=== PATIENT | female | born 1990 | race Caucasian/White ===

== ENCOUNTER 2017-05-12 07:32 | Emergency (ER) | payer MEDICAID, SELFPAY ==
[2017-05-12 07:34] VITALS: BP 124/90; PULSE 82; RESP 17; TEMP 36.9; O2SAT 97; BMI 19.5
--- NOTE | 2017-05-12 08:08 | ED.DCSUM_ITS ---
- ER Visit Summary Date of Service: 05/12/17 Chief Complaint: Sore throat History of Present Illness: The patient is a 26 F with 2 days of gradual onset severe sore throat hurts significantly to swallow, she has developed diffuse neck pain, it hurts to move her head although she is able. She denies any fevers. She has a nonproductive cough but states it is not severe and that it is because of my sore throat. No dyspnea. Some headache and nausea no vomiting. She states she is , she found out 2 weeks ago, her last normal menstrual period was 04/06/17. That would place her about 5-6 weeks . She has had no vaginal symptoms or abdominal discomfort other than the nausea. 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 Physical Examination: Nontoxic, afebrile, vital signs normal. No tachycardia. Posterior oropharynx is erythematous diffusely, her tonsils are barely visible, there is no asymmetry or edema or any exudates. No trismus. Anterior cervical lymphadenopathy, no posterior nodes. No stridor, lungs are clear, heart is regular. No rashes. Test Results: Rapid strep negative. Culture sent and pending. Emergency Department Course and Treatment: Discussed pros and cons of Decadron, patient was amenable, given 10 mg which I think will help her symptoms more than anything else I can give her safely while being right now. Antibiotics do not appear to be indicated given her negative strep. Unlikely to have mono, she is Toni and her significant other is well, And she has no posterior lymphadenopathy. She has no stridor or dyspnea, I do not think she has epiglottitis, and there is no asymmetry to suggest an abscess. I recommend no antibiotics at this time unless the culture returns positive. She is given the day off work and advised with regards to hydration and supportive care. Treatment Plan: Supportive Disposition: Discharge home Impression: Acute pharyngitis This note was generated with Medialive dictation software. It may contain incorrect words, spelling, and punctuation that were not noted in review of the chart prior to signing ED Disposition - Plan for ED Patient: Disposition: Home or Assisted Living Chief Complaint: Sore Throat Instructions: ED Pharyngitis Viral Referrals: Ramires,Quan, DO [Primary Care Provider] - 3-5 Days if not improving
[2017-05-12] MEDS: Ondansetron ODT 4 MG Tablet 8 MG PO (10:03)
== END 2017-05-12 10:08 | disposition home or self-care (01) ==
PROVIDERS: Emergency Provider Emergency Medicine; Family Provider Student in an Organized Health Care Education/Training Program; PCP Student in an Organized Health Care Education/Training Program
DX: O26.891 Other specified pregnancy related conditions, first trimester (principal); J02.9 Acute pharyngitis, unspecified; Z3A.01 Less than 8 weeks gestation of pregnancy
CPT/HCPCS: 87880; 99283

== ENCOUNTER 2017-05-16 20:15 | Emergency (ER) | payer MEDICAID, SELFPAY ==
[2017-05-16 20:16] VITALS: BP 110/74; PULSE 74; RESP 16; TEMP 37.3; O2SAT 99; BMI 19.9
--- NOTE | 2017-05-16 22:23 | ED.VISSUMM ---
- ER Visit Summary Date of Service: 05/16/17 Chief Complaint: [] Constipation History of Present Illness: The patient is a 26 F complaining of abdominal cramping for the last 2 days. She feels bloated. She has not had a bowel movement except for very small hard ones in the last 2 weeks. She is 6 weeks . She tried 4 doses of MiraLAX with her last dose being 4 days ago with no relief. She is using apple juice. She has had this remotely. Denies any other symptoms Physical Examination: [] Vital signs reviewed General: Well-nourished well-developed Head: Normocephalic atraumatic Eyes: Pupils equal round and reactive to light extraocular movements intact ENT: TMs clear no hemotympanum no trauma Neck: Nontender full range of motion Cardiovascular: Regular rate rhythm no murmurs normal S1-S2 Respiratory: No distress clear to auscultation bilaterally chest nontender Abdomen: Soft mild diffuse tenderness nondistended normal bowel sounds no masses Back: Nontender no CVA tenderness Extremities: Nontender active range of motion ?4 extremities no trauma Skin: Normal color no trauma Neuro alert oriented cranial nerves II through XII intact normal strength sensation reflexes Test Results: [] Emergency Department Course and Treatment: [] Given a soapsuds enema. Patient had a very large soft bowel movement after and feels back to normal. She will do MiraLAX for the next couple days. She will use Colace as well. Treatment Plan: [] Disposition: [] Impression: [] Constipation This note was generated with GlobaTrek dictation software. It may contain incorrect words, spelling, and punctuation that were not noted in review of the chart prior to signing ED Disposition - Plan for ED Patient: Chief Complaint: Constipation Referrals: Quan Ramires DO [Primary Care Provider] -
--- NOTE | 2017-05-16 22:59 | ED.RN ---
PT REQUESTING TO REMAIN IN SEATED POSITION FOR SOAPSUDS ENEMA, STATES SHE DOES NOT LIKE TO LAY ON SIDE. EDUCATED ON CORRECT POSITION FOR ENEMA, MECHANISM OF ACTION FOR OPTIMAL RESULTS. PT THREW BLANKET ON FLOOR, STATES WHATEVER, PT AWARE SHE HAS RIGHT TO REFUSE ENEMA. PT PLACED SELF IN SIDE LYING POSITION, ENEMA INSERTED WITHOUT DIFFICULTY.
--- NOTE | 2017-05-16 23:54 | ED.DEP ---
ED Disposition - Plan for ED Patient: Chief Complaint: Constipation Instructions: ED Constipation Referrals: Quan Ramires DO [Primary Care Provider] -
[2017-05-17] MEDS: Ondansetron ODT 4 MG Tablet 8 MG PO (00:35)
[2017-05-17 00:36] VITALS: BP 98/65; PULSE 61; RESP 16; O2SAT 100
== END 2017-05-17 00:36 | disposition home or self-care (01) ==
PROVIDERS: Emergency Provider Emergency Medicine; Family Provider Student in an Organized Health Care Education/Training Program; PCP Student in an Organized Health Care Education/Training Program
DX: O26.891 Other specified pregnancy related conditions, first trimester (principal); K59.00 Constipation, unspecified; Z3A.01 Less than 8 weeks gestation of pregnancy; Z90.49 Acquired absence of other specified parts of digestive tract
CPT/HCPCS: 99284

== ENCOUNTER → 2017-05-21 13:36 | Outpatient (CLI) | payer MEDICAID, SELFPAY | PROVIDERS: Family Provider Student in an Organized Health Care Education/Training Program; PCP Student in an Organized Health Care Education/Training Program; Visit Provider Nurse Practitioner Women's Health | DX: O20.0 Threatened abortion (principal); Z3A.00 Weeks of gestation of pregnancy not specified | CPT/HCPCS: 36415; 84702; 86850; 86900 ==

== ENCOUNTER 2017-05-23 19:52 | Emergency (ER) | payer MEDICAID, SELFPAY ==
[2017-05-23 19:55] VITALS: BP 119/83; PULSE 73; RESP 15; TEMP 37.2; BMI 18.6
[2017-05-23] MEDS: Ondansetron ODT 4 MG Tablet PO (20:54)
[2017-05-23 21:19] LABS: Red Blood Cells-Urine 0 SEEN /hpf (0-5)
[2017-05-23 21:28] LABS: Color, Urine Yellow (Yellow); Glucose, Dipstick Normal (Normal); Ketone-Dipstick 15 mg/dl (Negative); Leukocyte Esterase-Dipstick 100 /ul (Negative); Nitrite-Dipstick Negative (Negative); Occult Blood-Urine 150 /ul (Negative); Protein-Dipstick 15 mg/dl (Negative); Urine Bilirubin Dipstick Negative (Negative); Urine Clarity Cloudy (Clear); Urine Urobilinogen Normal (Normal)
[2017-05-23 21:40] LABS: Calcium Oxalate Crystals Ur 1+ /hpf (<or=2+)
[2017-05-23 21:42] LABS: Bacteria RARE /hpf (None Seen); Mucous, Urine RARE /hpf (<or=2+); Squamous Epithelial Cells - UA 0-5 SEEN /hpf (5-10); White Blood Cells 0-5 SEEN /hpf (0-5)
[2017-05-23 21:44] LABS: Yeast-Urine RARE /hpf (None Seen)
[2017-05-23] MEDS: Magnesium Citrate 300 ML PO (22:15)
[2017-05-23 22:24] VITALS: BP 105/75; PULSE 68; RESP 16; O2SAT 98
--- NOTE | 2017-05-23 22:46 | ED.VISSUMM ---
- ER Visit Summary Date of Service: 05/23/17 Chief Complaint: Constipation and abdominal pain History of Present Illness: The patient is a 26 F who is Ab1 at approximately 7 weeks. Patient states that for the past week she has been constipated. She tried enemas with little relief. She was seen by her [employer]RE[employer] L[employer] REPA[employer]ER HELPER approximately 2 days ago. She had a single live intrauterine noted. Patient states that she has this abdominal pain that is unbearable. Starts on the right side and wraps to the front. She states is there 24 hours a day for the past 7 days. She notes some nausea and vomiting. States that she knows that she is dehydrated because her mouth feels dry. She is making urine. She tried some magnesium citrate but threw it up and that is when they decided to bring her to the emergency department. Physical Examination: Afebrile vital signs are stable Gen: Well-nourished well-developed Head: Normocephalic atraumatic Eyes: Perrl EOMI ENT: TMs clear no rhinorrhea moist mucous membranes Neck: Supple no lymphadenopathy no JVD nontender CVS: Regular rate rhythm no murmurs normal S1-S2 Respiratory: No distress clear to auscultation bilaterally chest nontender Abdomen: Soft operable stool along the ascending and transverse colon. Nondistended normal bowel sounds no masses Back: Nontender Extremity: Nontender no edema Skin: Normal color no rash Neuro: alert orientated ?3 CN II-XII intact normal strength sensation reflexes gait cerebellar Psych: She has a very dramatic affect particularly around family members Test Results: Urinalysis showed 5 ketones. Emergency Department Course and Treatment: Received IV fluids. She also received her again and is drinking magnesium citrate. Patient was advised that if she is not eating she has not to have much stool to come out. Because she is early and I do not feel that there is a emergent cause to her abdominal pain IM not going to image the abdomen. She is to drink the magnesium citrate and her magnesium citrate at home. I will write for Phenergan. He is to orally hydrate. She is to eat. She is to follow-up with her ST[employer]PA[employer] HELPER. Impression: 1. First trimester 2. Abdominal pain 3. Constipation 4. Vomiting This note was generated with True Pivotation software. It may contain incorrect words, spelling, and punctuation that were not noted in review of the chart prior to signing ED Disposition - Plan for ED Patient: Disposition: Home or Assisted Living Chief Complaint: Abd Pain Instructions: Treating Constipation, ED Constipation Prescriptions: ProMETHAzine [Phenergan] 25 mg PO Q8H PRN PRN #20 tab PRN Reason: Nausea Referrals: Quan Ramires DO [Primary Care Provider] - 3-5 Days if not improving
== END 2017-05-23 23:05 | disposition home or self-care (01) ==
PROVIDERS: Emergency Provider Emergency Medicine; Family Provider Student in an Organized Health Care Education/Training Program; PCP Student in an Organized Health Care Education/Training Program
DX: O21.9 Vomiting of pregnancy, unspecified (principal); Z3A.01 Less than 8 weeks gestation of pregnancy; K59.00 Constipation, unspecified; R10.9 Unspecified abdominal pain
CPT/HCPCS: 81001; 99284; J7040

== ENCOUNTER 2017-05-31 16:25 | Emergency (ER) | payer MEDICAID, SELFPAY ==
[2017-05-31 16:27] VITALS: BP 106/72; PULSE 92; RESP 16; TEMP 37.3; O2SAT 99; BMI 19.1
[2017-05-31 17:25] LABS: Absolute Lymphocyte Count 1.31 X10^3/ul (0.83-4.51); Absolute Neutrophil Count 7.4 X10^3/uL (2.0-7.7); Basophil# 0.01 X10^3/uL; Basophil% 0.1 % (0-1); Eosinophil# 0.04 X10^3/uL; Eosinophils% 0.4 % (0-5); Hematocrit 38.1 % (37-47); Hemoglobin 12.8 g/dl (12.0-15.0); Lymphocyte # 1.31 X10^3/ul (4.0); Lymphocyte % 12.8 % (19-41); Mean Corp Hgb Conc 33.6 g/gl (32-36); Mean Corpuscular Hgb 29.2 pg (27.0-32.0); Mean Platelet Vol. 9.2 fl (6.2-12.0); Monocyte# 1.44 X10^3/uL; Neutrophil # 7.43 X10^3/uL (2.7-7.7); Neutrophil % 72.5 % (47-70); Platelet Count 199 K/mm3 (150-450); RBC Distribution Width CV 13.8 % (11.6-14.6); RBC Distribution Width SD 43.8 fl (35.1-43.9); Red Blood Count 4.38 M/mm3 (4.2-5.4); White Blood Count 10.3 K/mm3 (4.4-11.0)
[2017-05-31] MEDS: DiphenhydrAMINE 50 MG/ML Syringe 25 MG IV (17:28)
[2017-05-31] MEDS: Lactated Ringers 1,000 ML 1000 ML IV (17:28)
[2017-05-31 17:36] LABS: BUN 9 mg/dL (7-18); BUN/Creat Ratio 18.4 RATIO (10-20); Creatinine, Serum 0.49 mg/dL (0.55-1.02); EST Glomerular Filtration Rate 160 mL/min (>60); Est Glom Filt Rate - Afr Amer 194 mL/min (>60); Estimated Creatinine Clearance 124.13 ml/min; Glucose 83 mg/dL (74-106)
[2017-05-31 17:37] LABS: ALB/GLOB Ratio 0.8 RATIO (0.9-2.4); AST(SGOT) 15 U/L (15-37); Alanine Aminotransfer ALT/SGPT 19 U/L (13-56); Alkaline Phosphatase 78 U/L (45-117); Anion Gap 9 (5-15); Calcium,Total 8.2 mg/dL (8.5-10.1); Chloride 106 mmol/L (98-107); Potassium 3.3 mmol/L (3.5-5.1); Sodium Level 138 mmol/L (136-145)
[2017-05-31 17:39] LABS: POSITIVE COUNT NO; POSITIVE DIFFERENTIAL NO; POSITIVE MORPHOLOGY NO
[2017-05-31] MEDS: proCHLORPERazine 10 MG/2 ML Vial IV (17:57)
[2017-05-31 18:58] LABS: Mucous, Urine 0 SEEN /hpf (<or=2+); Red Blood Cells-Urine 0 SEEN /hpf (0-5)
[2017-05-31 19:04] LABS: Color, Urine Yellow (Yellow); Glucose, Dipstick Normal (Normal); Ketone-Dipstick 50 mg/dl (Negative); Leukocyte Esterase-Dipstick 100 /ul (Negative); Nitrite-Dipstick Negative (Negative); Occult Blood-Urine 25 /ul (Negative); Protein-Dipstick Negative (Negative); Specific Gravity, Urine 1.015 (1.002-1.030); Urine Bilirubin Dipstick Negative (Negative); Urine Clarity Sl. Cloudy (Clear); Urine Urobilinogen Normal (Normal); Urine pH 6.5 (5.0 - 8.0)
[2017-05-31 19:22] LABS: Bacteria 1+ /hpf (None Seen); Squamous Epithelial Cells - UA 5-10 SEEN /hpf (5-10); White Blood Cells 5-10 SEEN /hpf (0-5)
--- NOTE | 2017-05-31 19:32 | ED.RN ---
PT'S SIGNIFICANT OTHER CONCERNED WITH BUMP ON BACK OF PT'S HEAD. SO STATES PT'S MOTHER FROM A BRAIN ANEURYSM, HE IS CONCERNED PT MAY HAVE SAME. DISCUSSED PRESENTATION AND SYMPTOMS OF BRAIN ANEURYSM WITH PT AND SO, BOTH VOICE UNDERSTANDING. MD MADE AWARE OF CONCERNS OF PT AND SO.
[2017-05-31 19:37] VITALS: BP 96/68; PULSE 71; RESP 14; O2SAT 100
--- NOTE | 2017-05-31 20:13 | ED.DCSUM_ITS ---
- ER Visit Summary Date of Service: 05/31/17 Chief Complaint: Sick History of Present Illness: The patient is a 26 F Ab1 at 8 weeks . She has a history of a confirmed live intrauterine . She has been dealing with morning sickness. She presents today with fever, sore throat, head pressure, earaches, and nosebleeds. Patient denies any abdominal pain, vaginal bleeding, or vaginal discharge. Physical Examination: Vital signs are unremarkable. Afebrile. Patient appears very uncomfortable. She is alert and oriented. Cranial nerves grossly intact. Moving her neck freely. HEENT exam unremarkable. Heart regular. Lungs clear. Abdomen soft. Skin appears normal. Without rash. Test Results: CBC unremarkable. Potassium 3.3. Urinalysis shows signs of infection and bacteria. Emergency Department Course and Treatment: After discussion with the patient she was treated with Compazine, Benadryl, and lactated Ringer's. Symptoms improved greatly. This sounds like a sinus infection. Nothing to suggest intracranial bleeding, meningitis, vascular pathology, or any other significant pathologies. Patient may take Tylenol for symptoms. Stay hydrated. Will prescribe Keflex for her bacteriuria. Culture pending. Follow-up with OB and/or primary care for recheck. Return if worse. Treatment Plan: As above Disposition: Charge Impression: 1. Acute sinusitis 2. Bacteruria This note was generated with Sonarworks dictation software. It may contain incorrect words, spelling, and punctuation that were not noted in review of the chart prior to signing ED Disposition - Plan for ED Patient: Chief Complaint: General Illness Referrals: Quan Ramires DO [Primary Care Provider] -
--- NOTE | 2017-05-31 20:13 | ED.DEP ---
ED Disposition - Plan for ED Patient: Chief Complaint: General Illness Instructions: ED Sinusitis Abx Tx Prescriptions: Cephalexin [Keflex] 500 mg PO Q6 #40 cap Referrals: Quan Ramires DO [Primary Care Provider] -
[2017-05-31] MEDS: Cephalexin 250 MG Capsule 500 MG PO (20:57)
== END 2017-05-31 21:11 | disposition home or self-care (01) ==
PROVIDERS: Emergency Provider Emergency Medicine; Family Provider Student in an Organized Health Care Education/Training Program; PCP Student in an Organized Health Care Education/Training Program
DX: O26.891 Other specified pregnancy related conditions, first trimester (principal); J01.90 Acute sinusitis, unspecified; R82.71 Bacteriuria; Z3A.08 8 weeks gestation of pregnancy
CPT/HCPCS: 80053; 81001; 85025; 87086; 87088; 96361; 96374; 96375; 99284; J7120; A4216

== ENCOUNTER → 2017-06-01 11:49 | Outpatient (CLI) | payer MEDICAID, SELFPAY ==
[2017-06-01 12:25] LABS: Absolute Lymphocyte Count 1.61 X10^3/ul (0.83-4.51); Absolute Neutrophil Count 3.2 X10^3/uL (2.0-7.7); Basophil# 0.02 X10^3/uL; Basophil% 0.4 % (0-1); Eosinophils% 1.8 % (0-5); Hematocrit 37.5 % (37-47); Hemoglobin 12.5 g/dl (12.0-15.0); Lymphocyte # 1.61 X10^3/ul (4.0); Lymphocyte % 28.4 % (19-41); Mean Corp Hgb Conc 33.3 g/gl (32-36); Mean Platelet Vol. 8.9 fl (6.2-12.0); Monocyte# 0.73 X10^3/uL; Monocyte% 12.9 % (0-10); Neutrophil % 56.3 % (47-70); Platelet Count 209 K/mm3 (150-450); RBC Distribution Width CV 13.8 % (11.6-14.6); RBC Distribution Width SD 43.9 fl (35.1-43.9); Red Blood Count 4.31 M/mm3 (4.2-5.4); White Blood Count 5.7 K/mm3 (4.4-11.0)
[2017-06-01 12:27] LABS: POSITIVE COUNT NO; POSITIVE DIFFERENTIAL NO; POSITIVE MORPHOLOGY NO
[2017-06-01 13:43] LABS: HIV - WCH Non-Reactive (Nonreactive); Rubella IgG < 0.2 IU/mL
[2017-06-02 11:01] LABS: HEPATITIS B SURFACE AG Negative (Negative)
[2017-06-08 02:58] LABS: Rapid Plasmin Reagin (RPR) NONREACTIVE (NONREACTIVE)
== END ==
PROVIDERS: Family Provider Student in an Organized Health Care Education/Training Program; PCP Student in an Organized Health Care Education/Training Program; Visit Provider Obstetrics & Gynecology
DX: Z34.01 Encounter for supervision of normal first pregnancy, first trimester (principal)
CPT/HCPCS: 36415; 85025; 86592; 86703; 86762; 86850; 86900; 87086; 87088; 87340; 87491; 87591; 88175; G0145

== ENCOUNTER → 2017-06-01 21:31 | Outpatient (CLI) | payer MEDICAID, SELFPAY ==
[2017-06-01 23:11] LABS: Chlamydia Trachomatis by PCR Negative (Negative); Neisserai gonorrhoeae by PCR Negative (Negative); Probe Check PASS; Sample Adequacy Control PASS; Specimen Processing Control PASS
[2017-06-06 14:39] LABS: HPV Reflexed? NOT INDICATED
== END ==
PROVIDERS: Visit Provider Obstetrics & Gynecology
DX: Z34.01 Encounter for supervision of normal first pregnancy, first trimester (principal)
CPT/HCPCS: 87086; 87088; 87491; 87591; 88175; G0145

== ENCOUNTER → 2017-07-02 12:38 | Outpatient (CLI) | payer MEDICAID, SELFPAY | PROVIDERS: Family Provider Student in an Organized Health Care Education/Training Program; PCP Student in an Organized Health Care Education/Training Program | DX: Z36.82 Encounter for antenatal screening for nuchal translucency (principal) | CPT/HCPCS: 36415 ==

== ENCOUNTER → 2017-07-30 09:45 | Outpatient (CLI) | payer MEDICAID, SELFPAY | PROVIDERS: Family Provider Student in an Organized Health Care Education/Training Program; PCP Student in an Organized Health Care Education/Training Program | DX: O09.92 Supervision of high risk pregnancy, unspecified, second trimester (principal) | CPT/HCPCS: 36415 ==

== ENCOUNTER → 2017-08-13 18:20 | Outpatient (CLI) | payer MEDICAID, SELFPAY | PROVIDERS: Family Provider Student in an Organized Health Care Education/Training Program; PCP Student in an Organized Health Care Education/Training Program; Visit Provider Obstetrics & Gynecology | DX: R10.2 Pelvic and perineal pain (principal) | CPT/HCPCS: 87086; 87088 ==

== ENCOUNTER → 2017-08-21 18:24 | Outpatient (CLI) | payer MEDICAID, SELFPAY ==
--- NOTE | 2017-08-21 18:30 | US_ITS ---
STUDY: SECOND AND THIRD TRIMESTER OBSTETRICAL ULTRASOUND REASON FOR EXAM: Female, 26 years old. Routine survey. LMP: April 06, 2017. TECHNIQUE: Transabdominal PRIOR ULTRASOUND: None. FINDINGS: There is a single intrauterine fetus. The fetus is in a cephalic presentation. There is demonstrated cardiac activity with a heart rate of 155 bpm. There is a normal amniotic fluid volume. The largest amniotic fluid pocket measures 6.0 cm x 3.0 cm.The placenta is anterior in location and is not low lying. There are Grade 0 placental changes. The cervix measures 3.7 cm in length. The adnexal regions are not visualized. BIOMETRY: BPD: 4.55 cm: 19 weeks, 6 days HC: 17.76 cm: 20 weeks, 2 days AC: 15.05 cm: 20 weeks, 3 days FL: 3.17 cm: 19 weeks, 6 days CI: 77% FL/BPD: 70% FL/HC: FL/AC: 21% HC/AC: 1.18 age by current US: 20 weeks, 1 days. GORDON by current US: January 07, 2018. Estimated weight: 332 grams, +/- 48 grams, 75 %. Age by LMP: 19 weeks, 4 days. GORDON by LMP: January 11, 2018.. ANATOMY: Gender: Male Cranium: Normal lateral ventricles. Normal choroid plexus. Normal cerebellum. Normal cisterna magna. Normal face, nose and lips. Chest: Normal 4-chamber heart. Abdomen/Pelvis: Normal diaphragm. Normal stomach. Normal abdominal wall. Normal cord insertion. Normal 3 vessel cord. Normal kidneys. Normal bladder. Spine: Normal cervical spine. Normal thoracic spine. Normal lumbar spine. Normal sacrum. Extremities: Normal bilateral upper extremities. Normal bilateral lower extremities. US/OB Anatomy Scan IMPRESSION: There is a single live intrauterine gestation with a mean gestational age of 20 weeks and 1 day. Electronically Signed: Benny Valentin MD at 8:58 EDT Tel [phone], Service support ,
== END ==
PROVIDERS: Family Provider Student in an Organized Health Care Education/Training Program; PCP Student in an Organized Health Care Education/Training Program; Visit Provider Obstetrics & Gynecology
DX: Z34.01 Encounter for supervision of normal first pregnancy, first trimester (principal)
CPT/HCPCS: 76805

== ENCOUNTER → 2017-09-10 15:07 | Outpatient (CLI) | payer MEDICAID, SELFPAY ==
[2017-09-10 16:51] LABS: ALB/GLOB Ratio 0.6 RATIO (0.9-2.4); AST(SGOT) 21 U/L (15-37); Alanine Aminotransfer ALT/SGPT 23 U/L (13-56); Albumin, Serum 2.6 g/dL (3.2-5.0); Alkaline Phosphatase 67 U/L (45-117); Anion Gap 6 (5-15); BUN 5 mg/dL (7-18); BUN/Creat Ratio 14.3 RATIO (10-20); Calcium,Total 7.9 mg/dL (8.5-10.1); Chloride 105 mmol/L (98-107); Creatinine, Serum 0.35 mg/dL (0.55-1.02); EST Glomerular Filtration Rate 235 mL/min (>60); Est Glom Filt Rate - Afr Amer 284 mL/min (>60); Globulin 4.2 g/dL (2.2-4.2); Glucose 73 mg/dL (74-106); Potassium 3.8 mmol/L (3.5-5.1); Protein, Total 6.8 g/dL (6.4-8.2); Sodium Level 135 mmol/L (136-145)
== END ==
PROVIDERS: Family Provider Student in an Organized Health Care Education/Training Program; PCP Student in an Organized Health Care Education/Training Program; Visit Provider Obstetrics & Gynecology
DX: O99.719 Diseases of the skin and subcutaneous tissue complicating pregnancy, unspecified trimester (principal); L29.9 Pruritus, unspecified; Z3A.00 Weeks of gestation of pregnancy not specified
CPT/HCPCS: 36415; 80053

== ENCOUNTER → 2017-10-08 12:02 | Outpatient (CLI) | payer MEDICAID, SELFPAY ==
[2017-10-08 13:40] LABS: Absolute Lymphocyte Count 1.45 X10^3/ul (0.83-4.51); Absolute Neutrophil Count 4.4 X10^3/uL (2.0-7.7); Basophil# 0.01 X10^3/uL; Basophil% 0.1 % (0-1); Eosinophil# 0.04 X10^3/uL; Eosinophils% 0.6 % (0-5); Hematocrit 30.1 % (37-47); Hemoglobin 9.6 g/dl (12.0-15.0); Lymphocyte # 1.45 X10^3/ul (4.0); Lymphocyte % 21.5 % (19-41); Mean Corp Hgb Conc 31.9 g/gl (32-36); Mean Corpuscular Hgb 28.2 pg (27.0-32.0); Mean Corpuscular Volume 88.5 fL (81-99); Mean Platelet Vol. 8.5 fl (6.2-12.0); Monocyte# 0.77 X10^3/uL; Monocyte% 11.4 % (0-10); Neutrophil # 4.42 X10^3/uL (2.7-7.7); Neutrophil % 65.5 % (47-70); Platelet Count 249 K/mm3 (150-450); RBC Distribution Width CV 13.3 % (11.6-14.6); RBC Distribution Width SD 41.3 fl (35.1-43.9); White Blood Count 6.8 K/mm3 (4.4-11.0)
[2017-10-08 14:05] LABS: Glucose Challenge Gest 1H 50g 71 mg/dL (70-140)
[2017-10-08 14:08] LABS: POSITIVE COUNT NO; POSITIVE DIFFERENTIAL NO; POSITIVE MORPHOLOGY NO
== END ==
PROVIDERS: Family Provider Student in an Organized Health Care Education/Training Program; PCP Student in an Organized Health Care Education/Training Program; Visit Provider Obstetrics & Gynecology
DX: Z34.90 Encounter for supervision of normal pregnancy, unspecified, unspecified trimester (principal)
CPT/HCPCS: 36415; 82950; 85025; 87070; 87077; 87106; 87205

== ENCOUNTER → 2017-10-08 18:13 | Outpatient (CLI) | payer MEDICAID, SELFPAY | PROVIDERS: Family Provider Student in an Organized Health Care Education/Training Program; PCP Student in an Organized Health Care Education/Training Program; Visit Provider Obstetrics & Gynecology | DX: Z34.90 Encounter for supervision of normal pregnancy, unspecified, unspecified trimester (principal) | CPT/HCPCS: 87070; 87205 ==

== ENCOUNTER → 2017-11-19 09:25 | Outpatient (CLI) | payer MEDICAID, SELFPAY ==
[2017-11-19 09:52] LABS: Absolute Lymphocyte Count 1.46 X10^3/ul (0.83-4.51); Absolute Neutrophil Count 4.6 X10^3/uL (2.0-7.7); Basophil# 0.01 X10^3/uL; Basophil% 0.1 % (0-1); Eosinophil# 0.03 X10^3/uL; Eosinophils% 0.4 % (0-5); Hematocrit 30.5 % (37-47); Hemoglobin 9.3 g/dl (12.0-15.0); Lymphocyte # 1.46 X10^3/ul (4.0); Lymphocyte % 20.9 % (19-41); Mean Corp Hgb Conc 30.5 g/gl (32-36); Mean Corpuscular Hgb 25.4 pg (27.0-32.0); Mean Corpuscular Volume 83.3 fL (81-99); Mean Platelet Vol. 8.1 fl (6.2-12.0); Monocyte# 0.87 X10^3/uL; Monocyte% 12.5 % (0-10); Neutrophil # 4.59 X10^3/uL (2.7-7.7); Neutrophil % 65.8 % (47-70); Platelet Count 203 K/mm3 (150-450); RBC Distribution Width CV 14.2 % (11.6-14.6); RBC Distribution Width SD 41.2 fl (35.1-43.9); Red Blood Count 3.66 M/mm3 (4.2-5.4)
[2017-11-19 09:55] LABS: POSITIVE COUNT NO; POSITIVE DIFFERENTIAL NO; POSITIVE MORPHOLOGY NO
== END ==
PROVIDERS: Family Provider Student in an Organized Health Care Education/Training Program; PCP Student in an Organized Health Care Education/Training Program; Visit Provider Obstetrics & Gynecology
DX: O99.013 Anemia complicating pregnancy, third trimester (principal); Z3A.00 Weeks of gestation of pregnancy not specified
CPT/HCPCS: 36415; 85025

== ENCOUNTER → 2017-12-06 08:38 | Outpatient (CLI) | payer MEDICAID, SELFPAY ==
[2017-12-06 08:57] VITALS: BP 94/54; PULSE 71; RESP 16; TEMP 37.1; O2SAT 100; BMI 24.0
== END ==
PROVIDERS: Family Provider Student in an Organized Health Care Education/Training Program; PCP Student in an Organized Health Care Education/Training Program; Visit Provider Obstetrics & Gynecology
DX: O99.013 Anemia complicating pregnancy, third trimester (principal)
CPT/HCPCS: 96365; J1756; J7050

== ENCOUNTER 2017-12-09 11:15 | Outpatient (CLI) | payer MEDICAID, SELFPAY ==
[2017-12-09 11:52] VITALS: BMI 24.4
[2017-12-09] MEDS: Betamethasone/Betamethasone 30 MG/5 ML Vial 12 MG IM (13:14)
--- NOTE | 2017-12-13 22:33 | OB.TRI.NOTE ---
- Problem List (1) labor in third trimester Status: Acute Qualifiers: Comment: heatherone 12/08 and 12/10 History of Present Illness Date of Service: 12/09/17 Was patient seen by the physician?: Yes Reason For Visit: R/O LABOR Date of Service: 12/09/17 History of Present Illness: co regular ctx Allergies benzonatate Allergy (Verified 12/11/17 11:32) Vomiting oxycodone Allergy (Verified 12/11/17 11:32) Shortness of breath prazosin Allergy (Verified 12/11/17 11:32) Swelling ziprasidone HCl [From Geodon] Allergy (Verified 12/11/17 11:32) Other chest pressure ziprasidone mesylate [From Geodon] Allergy (Verified 12/11/17 11:32) Other chest pressure aripiprazole [From Abilify] Adverse Reaction (Verified 12/11/17 11:32) Other citalopram hydrobromide [From Celexa] Adverse Reaction (Verified 12/11/17 11:32) Other famotidine [From Pepcid] Adverse Reaction (Verified 12/11/17 11:32) Other iron Adverse Reaction (Verified 12/11/17 11:32) Other Constipation from oral iron supplements lithium Adverse Reaction (Verified 12/11/17 11:32) Other mirtazapine [From Remeron] Adverse Reaction (Verified 12/11/17 11:32) Itching olanzapine Adverse Reaction (Verified 12/11/17 11:32) Other MON LINYAH Adverse Reaction (Uncoded 12/06/17 09:05) Other - Pertinent Past Medical History Medical History: Past Medical History (Last Reviewed 12/11/17 @ 11:33 by Randee Stock) Anxiety and depression Surgical History: Past Surgical History (Last Reviewed 12/11/17 @ 11:33 by Randee Stock) Hiatal hernia History of appendectomy gallbladder surgery NST - FHR Rate Baby A Baseline: 130 Variability:: Moderate Accelerations:: 15 x 15 Decelerations:: None NST Reactive:: Yes FHR Category:: Category I Uterine Activity:: q2-4 Impression/Plan threatened ptl- no cervical change but persistent ctx. BMX given, fu in 24 hours for second dose
== END 2017-12-09 15:30 | disposition home or self-care (01) ==
LOC: WPOUT 11:20 → WP 11:21
PROVIDERS: Family Provider Student in an Organized Health Care Education/Training Program; PCP Student in an Organized Health Care Education/Training Program; Visit Provider Obstetrics & Gynecology
DX: O60.03 Preterm labor without delivery, third trimester (principal); Z3A.00 Weeks of gestation of pregnancy not specified
CPT/HCPCS: 59025; 59050; 87086; 87088; 96372; 99218; G0378; J0702

== ENCOUNTER 2017-12-10 13:26 | Outpatient (CLI) | payer MEDICAID, SELFPAY ==
[2017-12-10 13:35] VITALS: BMI 157.1
[2017-12-10] MEDS: Betamethasone/Betamethasone 30 MG/5 ML Vial 12 MG IM (13:50)
--- NOTE | 2017-12-13 22:32 | OB.TRI.NOTE ---
History of Present Illness Allergies benzonatate Allergy (Verified 12/11/17 11:32) Vomiting oxycodone Allergy (Verified 12/11/17 11:32) Shortness of breath prazosin Allergy (Verified 12/11/17 11:32) Swelling ziprasidone HCl [From Geodon] Allergy (Verified 12/11/17 11:32) Other chest pressure ziprasidone mesylate [From Geodon] Allergy (Verified 12/11/17 11:32) Other chest pressure aripiprazole [From Abilify] Adverse Reaction (Verified 12/11/17 11:32) Other citalopram hydrobromide [From Celexa] Adverse Reaction (Verified 12/11/17 11:32) Other famotidine [From Pepcid] Adverse Reaction (Verified 12/11/17 11:32) Other iron Adverse Reaction (Verified 12/11/17 11:32) Other Constipation from oral iron supplements lithium Adverse Reaction (Verified 12/11/17 11:32) Other mirtazapine [From Remeron] Adverse Reaction (Verified 12/11/17 11:32) Itching olanzapine Adverse Reaction (Verified 12/11/17 11:32) Other MON LINYAH Adverse Reaction (Uncoded 12/06/17 09:05) Other - Pertinent Past Medical History Medical History: Past Medical History (Last Reviewed 12/11/17 @ 11:33 by Randee Stock) Anxiety and depression Surgical History: Past Surgical History (Last Reviewed 12/11/17 @ 11:33 by Randee Stock) Hiatal hernia History of appendectomy gallbladder surgery Impression/Plan celestone shot
== END 2017-12-10 13:56 | disposition home or self-care (01) ==
LOC: WPOUT 13:28 → WP 13:29
PROVIDERS: Family Provider Student in an Organized Health Care Education/Training Program; PCP Student in an Organized Health Care Education/Training Program; Visit Provider Obstetrics & Gynecology
DX: O60.03 Preterm labor without delivery, third trimester (principal); Z3A.00 Weeks of gestation of pregnancy not specified
CPT/HCPCS: 59025; 59050; 96372; 99218; G0378; J0702

== ENCOUNTER 2017-12-11 11:45 | Outpatient (CLI) | payer MEDICAID, SELFPAY ==
[2017-12-11 11:55] VITALS: BMI 24.3
--- NOTE | 2017-12-13 22:35 | OB.TRI.NOTE ---
History of Present Illness Date of Service: 12/11/17 Reason For Visit: DECREASE MOVEMENT Date of Service: 12/11/17 History of Present Illness: decreased movement Allergies benzonatate Allergy (Verified 12/11/17 11:32) Vomiting oxycodone Allergy (Verified 12/11/17 11:32) Shortness of breath prazosin Allergy (Verified 12/11/17 11:32) Swelling ziprasidone HCl [From Geodon] Allergy (Verified 12/11/17 11:32) Other chest pressure ziprasidone mesylate [From Geodon] Allergy (Verified 12/11/17 11:32) Other chest pressure aripiprazole [From Abilify] Adverse Reaction (Verified 12/11/17 11:32) Other citalopram hydrobromide [From Celexa] Adverse Reaction (Verified 12/11/17 11:32) Other famotidine [From Pepcid] Adverse Reaction (Verified 12/11/17 11:32) Other iron Adverse Reaction (Verified 12/11/17 11:32) Other Constipation from oral iron supplements lithium Adverse Reaction (Verified 12/11/17 11:32) Other mirtazapine [From Remeron] Adverse Reaction (Verified 12/11/17 11:32) Itching olanzapine Adverse Reaction (Verified 12/11/17 11:32) Other MON LINYAH Adverse Reaction (Uncoded 12/06/17 09:05) Other - Pertinent Past Medical History Medical History: Past Medical History (Last Reviewed 12/11/17 @ 11:33 by Randee Stock) Anxiety and depression Surgical History: Past Surgical History (Last Reviewed 12/11/17 @ 11:33 by Randee Stock) Hiatal hernia History of appendectomy gallbladder surgery NST - FHR Rate Baby A Baseline: 125 Variability:: Moderate Accelerations:: 15 x 15 Decelerations:: None NST Reactive:: Yes FHR Category:: Category I Uterine Activity:: q 3-5 Impression/Plan decreased movement- reactive nst dc home
== END 2017-12-11 12:55 | disposition home or self-care (01) ==
LOC: WPOUT 11:49 → WP 11:50
PROVIDERS: Family Provider Student in an Organized Health Care Education/Training Program; PCP Student in an Organized Health Care Education/Training Program; Visit Provider Obstetrics & Gynecology
DX: O36.8190 Decreased fetal movements, unspecified trimester, not applicable or unspecified (principal); Z3A.00 Weeks of gestation of pregnancy not specified
CPT/HCPCS: 59025; 59050; 99218; G0378

== ENCOUNTER → 2017-12-11 13:29 | Outpatient (CLI) | payer MEDICAID, SELFPAY ==
[2017-12-11 13:42] VITALS: BP 106/59; PULSE 83; RESP 16; TEMP 36.8; O2SAT 99; BMI 24.3
== END ==
PROVIDERS: Family Provider Student in an Organized Health Care Education/Training Program; PCP Student in an Organized Health Care Education/Training Program; Visit Provider Obstetrics & Gynecology
DX: O99.013 Anemia complicating pregnancy, third trimester (principal); Z3A.00 Weeks of gestation of pregnancy not specified
CPT/HCPCS: 96365; 59025; 59050; 99218; J1756; J7050; A4216; G0378

== ENCOUNTER → 2017-12-12 17:17 | Outpatient (CLI) | payer MEDICAID, SELFPAY ==
--- NOTE | 2017-12-12 17:19 | US_ITS ---
STUDY: SECOND AND THIRD TRIMESTER OBSTETRICAL ULTRASOUND - LIMITED REASON FOR EXAM: Female, 26 years old. growth. LMP: 04/06/2017. GA (LMP) 35 week 5 day with GORDON 01/11/2018. PRIOR ULTRASOUND: 08/21/2017 TECHNIQUE: Transabdominal ultrasound evaluation was performed. FINDINGS: Single live intrauterine gestation in cephalic presentation with cardiac rate 143 bpm and with normal amniotic fluid index 17.1 cm with deepest vertical pocket 5.3 cm. Closed long cervix 3.5 cm. The maternal adnexa are not visualized. The placenta is anterior, not low-lying, grade 2. BIOMETRY: Measurement in centimeter. BPD: 8.6: 34 weeks, 5 days HC: 31.9: 36 weeks, 0 days AC: 31.4: 35 weeks, 5 days FL: 7: 35 weeks, 3 days Cephalic index 70%.. Femur length/abdominal circumference 22%. Femur length/biparietal diameter 81%. Head circumference/abdominal circumference 1.02. Estimated weight 2671 g, plus or minus 390 g, 41% age by current ultrasound 35 week 4 day, with GORDON 01/12/2018. Within 5 days of expected dates based on prior ultrasound. Within 1 day of expected dates based on last menses. US/OB Limited With Biometrics IMPRESSION: Measurements are closely concordant with expected dates. No acute or maternal abnormality is evident. Normal growth parameters. Electronically Signed: Dre Lebron, at 17:03 EDT Tel , Service support ,
== END ==
PROVIDERS: Family Provider Student in an Organized Health Care Education/Training Program; PCP Student in an Organized Health Care Education/Training Program; Visit Provider Obstetrics & Gynecology
DX: Z34.90 Encounter for supervision of normal pregnancy, unspecified, unspecified trimester (principal)
CPT/HCPCS: 76816

== ENCOUNTER → 2017-12-20 11:32 | Outpatient (CLI) | payer MEDICAID, SELFPAY ==
[2017-12-20 12:22] VITALS: BP 95/58; PULSE 78; RESP 16; TEMP 37.1
[2017-12-20 13:32] LABS: Absolute Neutrophil Count 6.3 X10^3/uL (2.0-7.7); Basophil# 0.03 X10^3/uL; Basophil% 0.3 % (0-1); Eosinophil# 0.04 X10^3/uL; Eosinophils% 0.4 % (0-5); Hematocrit 31.4 % (37-47); Hemoglobin 9.6 g/dl (12.0-15.0); Mean Corp Hgb Conc 30.6 g/gl (32-36); Mean Corpuscular Hgb 25.1 pg (27.0-32.0); Mean Platelet Vol. 8.6 fl (6.2-12.0); Monocyte# 0.75 X10^3/uL; Monocyte% 8.3 % (0-10); Neutrophil # 6.27 X10^3/uL (2.7-7.7); Neutrophil % 69.3 % (47-70); Platelet Count 222 K/mm3 (150-450); RBC Distribution Width CV 17.4 % (11.6-14.6); RBC Distribution Width SD 48.6 fl (35.1-43.9); Red Blood Count 3.83 M/mm3 (4.2-5.4); White Blood Count 9.1 K/mm3 (4.4-11.0)
[2017-12-20 13:35] LABS: POSITIVE COUNT NO; POSITIVE DIFFERENTIAL NO; POSITIVE MORPHOLOGY NO
== END ==
PROVIDERS: Family Provider Student in an Organized Health Care Education/Training Program; PCP Student in an Organized Health Care Education/Training Program; Referring Provider Obstetrics & Gynecology; Visit Provider Obstetrics & Gynecology
DX: O99.013 Anemia complicating pregnancy, third trimester (principal); Z3A.00 Weeks of gestation of pregnancy not specified
CPT/HCPCS: 96365; 36415; 85025; 87081; 87653; J1756; J7050; A4216

== ENCOUNTER → 2017-12-20 17:07 | Outpatient (CLI) | payer MEDICAID, SELFPAY ==
[2017-12-20 18:36] LABS: Group B Strep DNA By PCR Negative (Negative); Internal Control PASS; Probe Check PASS; Specimen Processing Control PASS
== END ==
PROVIDERS: Family Provider Student in an Organized Health Care Education/Training Program; PCP Student in an Organized Health Care Education/Training Program; Referring Provider Obstetrics & Gynecology; Visit Provider Obstetrics & Gynecology
DX: Z34.90 Encounter for supervision of normal pregnancy, unspecified, unspecified trimester (principal)
CPT/HCPCS: 87081; 87653

== ENCOUNTER → 2017-12-24 08:17 | Outpatient (CLI) | payer MEDICAID, SELFPAY ==
[2017-12-24 10:06] VITALS: BP 112/60; PULSE 81; RESP 14; TEMP 36.8; BMI 24.1
== END ==
PROVIDERS: Family Provider Student in an Organized Health Care Education/Training Program; PCP Student in an Organized Health Care Education/Training Program; Visit Provider Obstetrics & Gynecology
DX: O99.013 Anemia complicating pregnancy, third trimester (principal); Z3A.00 Weeks of gestation of pregnancy not specified
CPT/HCPCS: 96365; J1756; J7050

== ENCOUNTER → 2017-12-31 09:10 | Outpatient (CLI) | payer MEDICAID, SELFPAY ==
[2017-12-31 10:09] VITALS: BP 94/59; PULSE 76; RESP 16; TEMP 36.9; O2SAT 97; BMI 25.3
== END ==
PROVIDERS: Family Provider Student in an Organized Health Care Education/Training Program; PCP Student in an Organized Health Care Education/Training Program; Visit Provider Obstetrics & Gynecology
DX: O99.013 Anemia complicating pregnancy, third trimester (principal); Z3A.00 Weeks of gestation of pregnancy not specified
CPT/HCPCS: 96365; J1756; J7050; A4216

== ENCOUNTER 2018-01-11 10:30 | Outpatient (CLI) | payer MEDICAID, SELFPAY ==
[2018-01-11 11:40] LABS: ROM Internal Control Test YES-OK TO RESULT pt. (Internal QC); ROM Patient Test Negative (Negative)
[2018-01-11 12:20] VITALS: BMI 25.2
--- NOTE | 2018-01-11 22:59 | OB.TRI.NOTE ---
- Problem List (1) False labor Status: Acute History of Present Illness Date of Service: 01/11/18 Was patient seen by the physician?: No Reason For Visit: RULE OUT SROM History of Present Illness: co lof and contractions Allergies benzonatate Allergy (Verified 01/11/18 12:20) Vomiting oxycodone Allergy (Verified 01/11/18 12:20) Shortness of breath prazosin Allergy (Verified 01/11/18 12:20) Swelling ziprasidone HCl [From Geodon] Allergy (Verified 01/11/18 12:20) Other chest pressure ziprasidone mesylate [From Geodon] Allergy (Verified 01/11/18 12:20) Other chest pressure aripiprazole [From Abilify] Adverse Reaction (Verified 01/11/18 12:20) Other citalopram hydrobromide [From Celexa] Adverse Reaction (Verified 01/11/18 12:20) Other famotidine [From Pepcid] Adverse Reaction (Verified 01/11/18 12:20) Other iron Adverse Reaction (Verified 01/11/18 12:20) Other Constipation from oral iron supplements lithium Adverse Reaction (Verified 01/11/18 12:20) Other mirtazapine [From Remeron] Adverse Reaction (Verified 01/11/18 12:20) Itching olanzapine Adverse Reaction (Verified 01/11/18 12:20) Other MON LINYAH Adverse Reaction (Uncoded 01/11/18 12:20) Other - Pertinent Past Medical History Medical History: Past Medical History (Last Reviewed 01/07/18 @ 08:42 by Randee Stock) Anxiety and depression Surgical History: Past Surgical History (Last Reviewed 01/07/18 @ 08:42 by Randee Stock) Hiatal hernia History of appendectomy gallbladder surgery Laboratory Studies: Laboratory Tests 01/11/18 Range/Units 11:05 Vag Amniotic Fld Detect Negative (Negative) NST - FHR Rate Baby A Baseline: 130 Variability:: Moderate Accelerations:: 15 x 15 Decelerations:: None NST Reactive:: Yes FHR Category:: Category I Uterine Activity:: q3-8 Impression/Plan false labor no cervicla change, no rom dc home
== END 2018-01-11 13:00 | disposition home or self-care (01) ==
LOC: WPOUT 10:58 → WP 10:58
PROVIDERS: Family Provider Student in an Organized Health Care Education/Training Program; PCP Student in an Organized Health Care Education/Training Program; Referring Provider Obstetrics & Gynecology; Visit Provider Obstetrics & Gynecology
DX: O47.9 False labor, unspecified (principal); Z3A.00 Weeks of gestation of pregnancy not specified
CPT/HCPCS: 59025; 59050; 84112; 99218; G0378

== ENCOUNTER 2018-01-18 17:30 | Outpatient (CLI) | payer MEDICAID, SELFPAY ==
--- NOTE | 2018-01-18 17:36 | US_ITS ---
STUDY: SECOND AND THIRD TRIMESTER OBSTETRICAL ULTRASOUND - LIMITED REASON FOR EXAM: Female, 27 years old. GSA Gestational size/age LMP: PRIOR ULTRASOUND: 9..18 TECHNIQUE: Transabdominal and Transvaginal TECHNICAL QUALITY: Adequate. FINDINGS: There is a single intrauterine fetus. The fetus is in a cephalic presentation. There is demonstrated cardiac activity with a heart rate of 146 bpm. The placenta is not visualized. The cervix measures 2.6 cm in length. BIOMETRY: BPD: 94mm: 38 weeks, 1 days HC: 364mm: weeks, days AC: 335mm: 37 weeks, 3 days FL: 78mm: 40 weeks, 1 days Age by LMP: 40 weeks, 6 days. GORDON by LMP: 10.20.18. age by prior US: 40 weeks, 6 days. GORDON by prior US: 10.20.18. age by current US: 38 weeks, 4 days. GORDON by current US: 11.5.18. Estimated weight: 3575 grams, +/- 522 grams, percentile. US/OB Limited (No Biometrics) IMPRESSION: There is a single live intrauterine with a heart rate of 146 bpm. age by current US: 38 weeks, 4 days. GORDON by current US: 11.5.18. Estimated weight: 3575 grams, +/- 522 grams, percentile. Electronically Signed: Casimiro Gray MD at 20:12 EDT , Service support ,
[2018-01-18 19:36] VITALS: BMI 25.4
--- NOTE | 2018-01-18 20:59 | US_ITS ---
STUDY: SECOND AND THIRD TRIMESTER OBSTETRICAL ULTRASOUND - LIMITED REASON FOR EXAM: Female, 27 years old. well-being VIKAS ONLY. LMP: PRIOR ULTRASOUND: 9.19.18 AND Jan 18 2018 6:45pm TECHNIQUE: Transabdominal TECHNICAL QUALITY: Adequate. FINDINGS: There is a single intrauterine fetus. There is a normal amniotic fluid volume. The largest amniotic fluid pocket measures 5.8 cm. The amniotic fluid index (VIKAS) is 17.7 cm. US/OB Limited (No Biometrics) IMPRESSION: VIKAS IS 17.7 Electronically Signed: Casimiro Gray MD at 22:03 EDT , Service support ,
--- NOTE | 2018-01-23 03:10 | OB.TRI.NOTE ---
- Problem List (1) Post-dates Status: Acute History of Present Illness Date of Service: 01/18/18 Was patient seen by the physician?: No Reason For Visit: NST Date of Service: 01/18/18 History of Present Illness: postdates Allergies benzonatate Allergy (Verified 01/18/18 19:35) Vomiting oxycodone Allergy (Verified 01/18/18 19:35) Shortness of breath prazosin Allergy (Verified 01/18/18 19:35) Swelling ziprasidone HCl [From Geodon] Allergy (Verified 01/18/18 19:35) Other chest pressure ziprasidone mesylate [From Geodon] Allergy (Verified 01/18/18 19:35) Other chest pressure aripiprazole [From Abilify] Adverse Reaction (Verified 01/18/18 19:35) Other states she cant remember rx citalopram hydrobromide [From Celexa] Adverse Reaction (Verified 01/18/18 19:35) Other famotidine [From Pepcid] Adverse Reaction (Verified 01/18/18 19:35) Other iron Adverse Reaction (Verified 01/18/18 19:35) Other Constipation from oral iron supplements lithium Adverse Reaction (Verified 01/18/18 19:35) Other mirtazapine [From Remeron] Adverse Reaction (Verified 01/18/18 19:35) Itching olanzapine Adverse Reaction (Verified 01/18/18 19:35) Other MON LINYAH Adverse Reaction (Uncoded 01/18/18 19:35) Other - Pertinent Past Medical History Medical History: Past Medical History (Last Reviewed 01/19/18 @ 13:32 by Trini Alba) Anxiety and depression Surgical History: Past Surgical History (Last Reviewed 01/14/18 @ 08:16 by Nilda Patel) Hiatal hernia History of appendectomy gallbladder surgery NST - FHR Rate Baby A Baseline: 130 Variability:: Moderate Accelerations:: 15 x 15 Decelerations:: None NST Reactive:: Yes FHR Category:: Category I Uterine Activity:: no regular Impression/Plan reactive nst postdates fu for IOL tomorrow
== END 2018-01-18 21:40 | disposition home or self-care (01) ==
LOC: WPOUT 17:32 → WP 17:33
PROVIDERS: Family Provider Student in an Organized Health Care Education/Training Program; PCP Student in an Organized Health Care Education/Training Program; Referring Provider Obstetrics & Gynecology; Visit Provider Obstetrics & Gynecology
DX: O48.0 Post-term pregnancy (principal); Z3A.00 Weeks of gestation of pregnancy not specified
CPT/HCPCS: 59025; 59050; 76815; 99218; G0378

== ENCOUNTER 2018-01-19 11:56 | Inpatient (IN) | payer MEDICAID, SELFPAY ==
[2018-01-19 12:45] VITALS: BMI 24.8
[2018-01-19] MEDS: Acetaminophen 325 MG Tablet PO ×2 (13:16→20:36)
[2018-01-19] MEDS: Lactated Ringers 1,000 ML 50 ML IV ×3 (13:17→22:39)
[2018-01-19 13:31] LABS: Hematocrit 35.9 % (37-47); Mean Corp Hgb Conc 30.6 g/gl (32-36); Mean Corpuscular Hgb 25.8 pg (27.0-32.0); Mean Corpuscular Volume 84.1 fL (81-99); Mean Platelet Vol. 9.3 fl (6.2-12.0); Platelet Count 180 K/mm3 (150-450); RBC Distribution Width CV 21.5 % (11.6-14.6); RBC Distribution Width SD 64.9 fl (35.1-43.9); Red Blood Count 4.27 M/mm3 (4.2-5.4); Scan Indicated on CBC? Y/N YES- FLAGS NOTED; White Blood Count 6.7 K/mm3 (4.4-11.0)
[2018-01-19] MEDS: miSOPROStol 25 MCG TABLET VAGINAL (13:42)
[2018-01-19] MEDS: 0.9% Normal Saline 100 ML IV.SOLN. INTRA-UTER (18:45)
--- NOTE | 2018-01-19 18:50 | PCM.HP.OB ---
- Problem List (1) Anemia during in third trimester Status: Acute Comment: cbc monthly, cant tolerate iron. (2) Rubella non-immune status, antepartum Status: Acute Comment: discussed avoidance, mmr pp (3) screening encounter Status: Acute Comment: nt screening done 07/02/17 optimal draw dates: 07/26/17-08/09/17- interpretation screen negative- done 07/30/17 (4) Supervision of normal Status: Acute Qualifiers: Comment: PRR GORDON 01/11/18 Arpan (5) Depression Status: Chronic Qualifiers: Comment: celexa History Date of Admission: 10/22/14 Final GORDON: 01/11/18 Gestational age: 41 Weeks and 1 Days History of this : This is a 27 year-old, G 1P0, at 41 weeks gestational age presents for IOL postdates. she has had an uncomplicated and denies any vb lof admits good fm and has had some pelvic pressure. Medical History: Medical History (Last Reviewed 01/19/18 @ 13:32 by Trini Alba) Anxiety and depression F41.8 Surgical History: Surgical History (Last Reviewed 01/14/18 @ 08:16 by Nilda Patel) Hiatal hernia K44.9 History of appendectomy Z98.890, Z90.49 gallbladder surgery Allergies benzonatate Allergy (Verified 01/18/18 19:35) Vomiting oxycodone Allergy (Verified 01/18/18 19:35) Shortness of breath prazosin Allergy (Verified 01/18/18 19:35) Swelling ziprasidone HCl [From Geodon] Allergy (Verified 01/18/18 19:35) Other chest pressure ziprasidone mesylate [From Geodon] Allergy (Verified 01/18/18 19:35) Other chest pressure aripiprazole [From Abilify] Adverse Reaction (Verified 01/18/18 19:35) Other states she cant remember rx citalopram hydrobromide [From Celexa] Adverse Reaction (Verified 01/18/18 19:35) Other famotidine [From Pepcid] Adverse Reaction (Verified 01/18/18 19:35) Other iron Adverse Reaction (Verified 01/18/18 19:35) Other Constipation from oral iron supplements lithium Adverse Reaction (Verified 01/18/18 19:35) Other mirtazapine [From Remeron] Adverse Reaction (Verified 01/18/18 19:35) Itching olanzapine Adverse Reaction (Verified 01/18/18 19:35) Other MON HEIDIH Adverse Reaction (Uncoded 01/18/18 19:35) Other Home Medications: Home Medications Cyanocobalamin (Vitamin B-12) [B-12] 50 mcg PO DAILY 12/10/17 Smoking Status: Former smoker Alcohol: None Number of Fetus(es): 1 Heart Tracins moderate variability reactive isolated decel TOCO Analysis: irregular History Past Pregnancies: Past Pregnancies Delivery Date Name GA/Weeks Outcome Route Weight Gender Labor Length Anesthesia Delivery Location Provider FOB Labs: Mom's Labs & Results 01/19/18 01/19/18 13:00 13:00 WBC 6.7 RBC 4.27 Hgb 11.0 L Hct 35.9 L MCV 84.1 MCH 25.8 L MCHC 30.6 L RDW 21.5 H RDW Differential 64.9 H Plt Count 180 MPV 9.3 Differential Comment COMMENT Blood Type A POSITIVE Antibody Screen NEGATIVE Course Did the patient receive Yes care? Labs Blood Type: A RH: POSITIVE RPR/VDRL/Syphilis Nonreactive Rubella status Non-immune HbSAg Negative Date Done: 06/01/17 Chlamydia Negative Gonorrhea Negative HIV/AIDS Non-Reactive Group B Strep: Negative Other Lab Procedures/Results/ lithium < 0.2mmol Comments: Current Obstetrical History Gestational Diabetes No Incompetent Cervix No Infertility No IUGR No Macrosomia No Hypertension/Pre-eclampsia No Placenta Previa/Abruption No PTL/PROM No Uterine anomaly No Oligohydramnios No Polyhydramnios No Multiple gestation No Past Medical History Asthma No Diabetes No Hypertension No Heart disease No Mitral valve prolapse No Neurologic/Seizure disorder/ No Migraines Kidney disease No Liver disease No Varicosities No Clotting disorders/Hx of DVT No Thyroid Dysfunction No Other medical diseases No Psychiatric disorders No Major trauma No Abnormal PAP smear No Sleep apnea No Mammogram in the last 2 years No Social History Marital Status: Alleged father Arpan Matos Hx Smoking No Smoking Status Former smoker Expected Delivery Method: Spontaneous Vaginal Review of Systems Constitutional: Denies: Fever, Malaise Eyes: Denies: Blurred vision, Vision Change HEENT: Denies: Head Aches, Visual Changes Cardiovascular: Denies: Chest Pain, Palpitations Respiratory: Denies: Cough, Shortness of Breath, Wheezing Gastrointestinal: Denies: Abdominal Pain, Diarrhea, Nausea, Vomiting Genitourinary: Denies: Dysuria, Hematuria Musculoskeletal: Denies: Joint Pain, Muscle pain Skin: Denies: Lesions, Rash Neurological: Denies: Blurred vision, Focal weakness, Headaches Psychiatric: Denies: Anxiety, Depression Endocrine: Denies: Heat/ Cold Intolerance Hematologic/ Lymphatic: Denies: Easy Bruising, Easy Bleeding Physical Exam General: Alert, Cooperative, No apparent distress HEENT: Atraumatic, Normocephalic. Negative for: Thyromegaly, Lymphadenopathy Cardiovascular: Regular rate Lungs: Normal air movement Abdomen: Soft, Non Tender, Gravid Neurological: Deep Tendon Reflexes 2+/4 and Symmetrical, Neuro grossly intact. Negative for: Clonus [employer]ESSOR [employer]CH[employer] ENGINEERING: Normal external genitalia. Negative for: Vulvar lesions Estimated gestational size: Appropriate for gestational size Presentation: Cephalic Cervix Dilation (cm): 0.5 Station: 0 Effacement (%): 60 Assessment/Plan All Active Problems (Last Reviewed 01/19/18 @ 13:32 by Trini Alba) False labor (Acute) Bloody discharge from nipple (Acute) labor in third trimester (Acute) Anemia during in third trimester (Acute) Rubella non-immune status, antepartum (Acute) screening encounter (Acute) Supervision of normal (Acute) Abdominal pain (Resolved) Bleeding in early (Resolved) Constipation during (Resolved) Subchorionic hematoma in first trimester (Resolved) This is a 27 year-old, at 41 weeks gestational age IOL postdates Patient presents IOL, plan expectant management for , pitocin now AROM PRN . Pain management: plans epidural. GBS neg. Management of any complications: none I have reviewed the [facility] and made any clinically relevant updates.
[2018-01-19] MEDS: Oxytocin 30 units/NS 500 ml 30 UNITS/500 ML IV.SOLN IV (19:56)
[2018-01-19] MEDS: Ondansetron 4 MG/2 ML Vial IV (23:36)
[2018-01-19] MEDS: 0.9% Saline Lock 10 ML Syringe IV (23:37)
[2018-01-19] MEDS: Sodium Citrate/Citric Acid 30 ML UDC PO (23:44)
[2018-01-20] VITALS (20 sets, daily range): BP systolic 91–137; BP diastolic 47–88; PULSE 60–104; RESP 16–20; TEMP 36.2–37.2; O2SAT 95–99
[2018-01-20] MEDS: Cefazolin 2 GM in 0.9% Normal Saline 100 ML IV
[2018-01-20] MEDS: Methylergonovine 0.2 MG/ML Ampul IM (00:33)
[2018-01-20] MEDS: Lactated Ringers 1,000 ML 100 ML IV ×3 (01:22→19:43)
[2018-01-20] MEDS: Oxytocin 30 units/NS 500 ml 30 UNITS/500 ML IV.SOLN 167 UNITS IV (01:22)
[2018-01-20] MEDS: 0.9% Saline Lock 10 ML Syringe IV ×2 (01:40→19:04)
[2018-01-20] MEDS: Ketorolac 30 MG/ML Syringe IV ×4 (01:40→19:04)
--- NOTE | 2018-01-20 02:40 | PCM.PN.BLA ---
Progress Note fht 140 moderate variability reacitve isoalted decels. valencia bulb out and ROM clear lfuid, and mentum posterior face presentation encountered. patient is 6 cm 90 percent and -1 station. patient moved to hands and knees with fire hydrant bilaterally for 60 minutes and then additional attempt at vaginal and abdominal manual flexion the the head attempted with caution but unsuccessful. decision for primary due to malpresentation.
--- NOTE | 2018-01-20 02:43 | PCM.OPRPT ---
Problem List (1) Anemia during in third trimester Status: Acute Comment: cbc monthly, cant tolerate iron. (2) Rubella non-immune status, antepartum Status: Acute Comment: discussed avoidance, mmr pp (3) screening encounter Status: Acute Comment: nt screening done 07/02/17 optimal draw dates: 07/26/17-08/09/17- interpretation screen negative- done 07/30/17 (4) Supervision of normal Status: Acute Qualifiers: Comment: PRR GORDON 01/11/18 Arpan (5) Depression Status: Chronic Qualifiers: Comment: celexa Report of Operation Date of Procedure: 01/20/18 Pre-Operative Diagnosis: Induction of labor postdates, malpresentation with face presentation, mentum posterior Post-Operative Diagnosis: Same plus mild PP uterine atony Surgery/Procedure Performed:: Primary low transverse secondary to malpresentation mentum posterior face presentation Description of Surgical Findings:: Fetus in the mentum posterior face presentation normal tubes and ovaries billet sawyer: Abdulkadir Pandya Type of Anesthesia:: Epidural, General Special Medications: methergine Specimen's removed: Male infant Drains: Whitney Estimated Blood Loss (mL): 600 Fluids Replaced: Crystalloid Description of Procedure: Patient is a 27-year-old at 41 weeks 1 day presents for induction of labor secondary to postdates. Patient underwent a Whitney bulb and Pitocin induction of labor after 1 dose of Cytotec. Cytotec was not continued because of a spontaneous deceleration and the cervix was open enough to insert a Whitney bulb. Whitney bulb was expelled and patient was found to be 5-6 cm dilated and underwent clear rupture of membranes. At this time the fetus's head was found to be in a face presentation with mentum posterior presentation. Patient was flipped on hands and knees for an hour and bilateral fire hydrant positions and attempts both internal and external pressure was applied to encourage spontaneous flexion and rotation with heart rate tracing monitored throughout and reassuring, attempts were unsuccessful and therefore the patient was consented for a primary low transverse . The patient was placed in the dorsal supine position with leftward tilt. Patient was prepped and draped in the normal sterile fashion. Patient was found to be in adequately anesthetized and therefore the decision was made for the patient undergo general anesthesia. After general anesthesia was induced and confirmed Pfannenstiel skin incision was made with the scalpel and carried through to the underlying layer of fascia with the scalpel. Fascia was nicked in the midline and the incision extended laterally. The rectus bellies were dissected off superiorly and inferiorly with out complication both sharply and bluntly. The peritoneum was entered digitally. The incision was stretched and a low transverse uterine incision was made with the scalpel. The infant's head was delivered atraumatically followed by the anterior and posterior shoulders without complication the rest of the delivered. The cord was clamped and cut and the was handed off to awaiting nurse. The placenta was delivered spontaneously immediately following and was noted to be intact and have a three-vessel cord. The uterus was exteriorized cleared of all clots and debris, and the incision was closed in a double layer closure using #1 Monocryl. Uterine atony was encountered and therefore Methergine was given in addition to the routine Pitocin dosing . the uterus was returned to the maternal abdomen and gutters were cleared of all clots and debris. The ovaries and fallopian tubes were noted to be within normal limits. The peritoneum was closed with 3-0 Monocryl in a running fashion. Fascia was closed with 0 PDS in a running fashion. Subcutaneous tissue was copiously irrigated and the skin was closed with 3-0 Monocryl in a subcuticular fashion. Mepilex dressing were applied without complication. Patient was taken to recovery in stable condition. Grafts/Implants Used: None - Complications None
--- NOTE | 2018-01-20 02:46 | NURSING ---
Addendum entered by Lali Reid 01/20/18 02:55: confirmed with WESTONoteatCRNA gave pt dilaudid for pain management Original Note: pt remains painful after dose of Toradol IV given @ 0140. pt rating pain 6/10 on pain intensity scale. @ 0235 JCoteatCMAEGAN called and reported pain painful and states he will be in to evaluate pt. GarrisonatCRNA in pt room @ 0240 and gave pt pain medication and states will be back in pt room to evaluate pain level.
--- NOTE | 2018-01-20 02:48 | OP.PCM_ITS ---
Problem List (1) Anemia during in third trimester Status: Acute Comment: cbc monthly, cant tolerate iron. (2) Rubella non-immune status, antepartum Status: Acute Comment: discussed avoidance, mmr pp (3) screening encounter Status: Acute Comment: nt screening done 07/02/17 optimal draw dates: 07/26/17-08/09/17- interpretation screen negative- done 07/30/17 (4) Supervision of normal Status: Acute Qualifiers: Comment: PRR GORDON 01/11/18 Arpan (5) Depression Status: Chronic Qualifiers: Comment: celexa Report of Operation Date of Procedure: 01/20/18 Pre-Operative Diagnosis: Induction of labor postdates, malpresentation with face presentation, mentum posterior Post-Operative Diagnosis: Same plus mild PP uterine atony Surgery/Procedure Performed:: Primary low transverse secondary to malpresentation mentum posterior face presentation Description of Surgical Findings:: Fetus in the mentum posterior face presentation normal tubes and ovaries youth advocate: Abdulkadir Pandya Type of Anesthesia:: Epidural, General Special Medications: methergine Specimen's removed: Male infant Drains: Whitney Estimated Blood Loss (mL): 600 Fluids Replaced: Crystalloid Description of Procedure: Patient is a 27-year-old at 41 weeks 1 day presents for induction of labor secondary to postdates. Patient underwent a Whitney bulb and Pitocin induction of labor after 1 dose of Cytotec. Cytotec was not continued because of a sp ontaneous deceleration and the cervix was open enough to insert a Whitney bulb. Whitney bulb was expelled and patient was found to be 5-6 cm dilated and underwent clear rupture of membranes. At this time the fetus's head was found to be in a face presentation with mentum posterior presentation. Patient was flipped on hands and knees for an hour and bilateral fire hydrant positions and attempts both internal and external pressure was applied to encourage spontaneous flexion and rotation with heart rate tracing monitored throughout and reassuring, attempts were unsuccessful and therefore the patient was consented for a primary low transverse . The patient was placed in the dorsal supine position with leftward tilt. Patient was prepped and draped in the normal sterile fashion. Patient was found to be in adequately anesthetized and therefore the decision was made for the patient undergo general anesthesia. After general anesthesia was induced and confirmed Pfannenstiel skin incision was made with the scalpel and carried through to the underlying layer of fascia with the scalpel. Fascia was nicked in the midline and the incision extended laterally. The rectus bellies were dissected off superiorly and inferiorly with out complication both sharply and bluntly. The peritoneum was entered digitally. The incision was stretched and a low transverse uterine incision was made with the scalpel. The infant's head was delivered atraumatically followed by the anterior and posterior shoulders without complication the rest of the infant delivered. The cord was clamped and cut and the was handed off to awaiting nurse. The placenta was delivered spontaneously immediately following and was noted to be intact and have a three-vessel cord. The uterus was exteri orized cleared of all clots and debris, and the incision was closed in a double layer closure using #1 Monocryl. Uterine atony was encountered and therefore Methergine was given in addition to the routine Pitocin dosing . the uterus was returned to the maternal abdomen and gutters were cleared of all clots and debris. The ovaries and fallopian tubes were noted to be within normal limits. The peritoneum was closed with 3-0 Monocryl in a running fashion. Fascia was closed with 0 PDS in a running fashion. Subcutaneous tissue was copiously irrigated and the skin was closed with 3-0 Monocryl in a subcuticular fashion. Mepilex dressing were applied without complication. Patient was taken to recovery in stable condition. Grafts/Implants Used: None - Complications None
--- NOTE | 2018-01-20 04:29 | NURSING ---
epidural catheter removed @ 346; blue tip intact
--- NOTE | 2018-01-20 10:34 | PCM.PN.OB ---
Subjective: doing well no complaints - Physical Exam General: Alert, Oriented x3 Vital Signs Temp Pulse Resp BP Pulse Ox 98.1 F 76 16 110/70 98 01/20/18 07:43 01/20/18 08:43 01/20/18 08:43 01/20/18 07:43 01/20/18 08:43 Oxygen Delivery Method Room Air Weight: 131 lb 8 oz Body Mass Index (BMI) 24.8 Intake and Output for Last 24 Hours 01/18/18 01/19/18 01/20/18 23:59 23:59 23:59 Intake Total 2066 / 2066 Output Total 200 / 200 900 / 900 Balance -200 / -200 1167 / 1167 Laboratory Tests Past 24 Hrs 01/19/18 01/19/18 13:00 13:00 WBC 6.7 RBC 4.27 Hgb 11.0 L Hct 35.9 L MCV 84.1 MCH 25.8 L MCHC 30.6 L RDW 21.5 H RDW Differential 64.9 H Plt Count 180 MPV 9.3 Differential Comment COMMENT Blood Type A POSITIVE Antibody Screen NEGATIVE Medical Necessity - Tobacco Use Smoking Status: Former smoker Assessment/Plan All Active Problems (Last Reviewed 01/19/18 @ 13:32 by Trini Alba) Bloody discharge from nipple (Acute) Anemia during in third trimester (Acute) Rubella non-immune status, antepartum (Acute) screening encounter (Acute) Supervision of normal (Acute) Abdominal pain (Resolved) Bleeding in early (Resolved) Constipation during (Resolved) False labor (Resolved) labor in third trimester (Resolved) Subchorionic hematoma in first trimester (Resolved) s/p LTCS PPD # 1 1. routine post care 2. breast feeding- support given 3. rh positive 4. rubella non immune - give MMR
[2018-01-20] MEDS: Acetaminophen 500 MG Tablet 1000 MG PO (16:26)
--- NOTE | 2018-01-20 19:44 | NURSING ---
Pt. c/o of nosebleed and states it occurred around 1930. She said it was one gush and then ended. Nose appears normal with no redness, bleeding, or drainage at this time.
[2018-01-20] MEDS: HYDROmorphone 2 MG TABLET PO (23:35)
[2018-01-21] MEDS: Ketorolac 30 MG/ML Syringe IV ×2 (01:49→07:41)
[2018-01-21] MEDS: 0.9% Saline Lock 10 ML Syringe IV (01:49)
[2018-01-21] MEDS: Acetaminophen 500 MG Tablet 1000 MG PO ×3 (03:04→23:52)
--- NOTE | 2018-01-21 03:15 | NURSING ---
pt is rubella non-immune, This RN discussed MMR vaccine with pt. pt refused MMR vaccine
[2018-01-21 04:25] VITALS: BP 98/57; PULSE 72; RESP 18; TEMP 36.4; O2SAT 100
[2018-01-21 06:59] LABS: Hematocrit 22.7 % (37-47); Mean Corp Hgb Conc 30.8 g/gl (32-36); Mean Corpuscular Hgb 26.6 pg (27.0-32.0); Mean Corpuscular Volume 86.3 fL (81-99); Mean Platelet Vol. 9.2 fl (6.2-12.0); Platelet Count 169 K/mm3 (150-450); RBC Distribution Width CV 21.7 % (11.6-14.6); RBC Distribution Width SD 64.4 fl (35.1-43.9); Red Blood Count 2.63 M/mm3 (4.2-5.4); White Blood Count 9.1 K/mm3 (4.4-11.0)
[2018-01-21 07:01] LABS: Scan Indicated on CBC? Y/N YES- FLAGS NOTED
[2018-01-21 07:20] LABS: Differential Comment SCANNED
[2018-01-21 07:55] VITALS: BP 86/48; PULSE 62; RESP 16; TEMP 36.6
--- NOTE | 2018-01-21 08:05 | PCM.PN.OB ---
Subjective: No CP,SOB. Pain currently controlled. - Physical Exam General: Alert, Oriented x3 Abdomen: Soft, Non-Distended, - - FF below U. Dressing dry and intact Vital Signs Temp Pulse Resp BP Pulse Ox 97.9 F 62 16 86/48 L 100 01/21/18 07:55 01/21/18 07:55 01/21/18 07:55 01/21/18 07:55 01/21/18 04:25 Oxygen Delivery Method Room Air Weight: 131 lb 8 oz Body Mass Index (BMI) 24.8 Intake and Output for Last 24 Hours 01/19/18 01/20/18 01/21/18 23:59 23:59 23:59 Intake Total 2667 / 2667 Output Total 200 / 200 2700 / 2700 800 / 800 Balance -200 / -200 -33 / -33 -800 / -800 Laboratory Tests Past 24 Hrs 01/21/18 05:30 WBC 9.1 RBC 2.63 L Hgb 7.0 L Hct 22.7 L MCV 86.3 MCH 26.6 L MCHC 30.8 L RDW 21.7 H RDW Differential 64.4 H Plt Count 169 MPV 9.2 Differential Comment SCANNED Medical Necessity - Tobacco Use Smoking Status: Former smoker Assessment/Plan All Active Problems (Last Reviewed 01/19/18 @ 13:32 by Trini Alba) Bloody discharge from nipple (Acute) Anemia during in third trimester (Acute) Rubella non-immune status, antepartum (Acute) screening encounter (Acute) Supervision of normal (Acute) Abdominal pain (Resolved) Bleeding in early (Resolved) Constipation during (Resolved) False labor (Resolved) labor in third trimester (Resolved) Subchorionic hematoma in first trimester (Resolved) PLTCS face presentation. POD #1: Routine care. Pain controlled. . Needs MMR.
[2018-01-21] MEDS: HYDROmorphone 2 MG TABLET PO ×3 (09:29→20:18)
[2018-01-21 12:20] LABS: Hemoglobin 8.1 g/dl (12.0-15.0)
[2018-01-21 13:45] VITALS: BP 99/60; PULSE 70; RESP 16; TEMP 36.7
[2018-01-21] MEDS: Naproxen 250 MG Tablet PO ×2 (13:52→22:22)
[2018-01-21 19:37] VITALS: BP 91/41; PULSE 74; RESP 16; TEMP 36.9; O2SAT 97
--- NOTE | 2018-01-21 23:50 | NURSING ---
Pt called out and states that she is having an increased amount of pain, despite having both dilaudid PO and naproxen PO. This RN encouraged patient to get out of bed and try to walk but pt states I can't. This RN inquired whether patient had been using binder and she had not, so this RN assisted patient with applying binder and encouraged patient to use kpad on abdomen at this time as well. Patient states that she is too hot to use kpad, so this RN decreased temperature in the room. This RN offered patient tylenol PO but encouraged patient to walk, as this will probably help more than patient continually receiving pain medication. Patient states that her body just does not work like other people's. Patient also reports that she could not finish urinating when she got up to bathroom because the urination was very painful. Pt reports she is also having some back pain. reports that patient also had frequent UTIs during her , and painful urination had been reported to this RN by the previous nurse. Will bladder scan patient. This RN spoke with charge nurse Ellie, who then went into room to talk with patient.
--- NOTE | 2018-01-22 00:36 | NURSING ---
Addendum entered by Margo Ulloa 01/22/18 01:12: Abdomen palpated after bladder scan. Abdomn soft, not distended. Fundus firm at umbilicus and midline. Gas can be palpated in upper abdomen. Original Note: Late entry: 0000 bladder scanned for 250ml urine.
[2018-01-22] MEDS: HYDROmorphone 2 MG TABLET PO ×2 (01:04→06:28)
[2018-01-22] MEDS: Ketorolac 10 MG Tablet PO ×4 (01:05→23:04)
[2018-01-22] MEDS: Phenazopyridine 95 MG Tablet PO ×4 (01:05→22:03)
[2018-01-22 01:10] VITALS: BP 101/60; PULSE 69; RESP 16; TEMP 36.5; O2SAT 98
[2018-01-22 02:01] LABS: Mucous, Urine 0 SEEN /hpf (<or=2+)
[2018-01-22 03:07] LABS: Color, Urine Straw (Yellow); Glucose, Dipstick Normal (Normal); Ketone-Dipstick Negative (Negative); Leukocyte Esterase-Dipstick 25 /ul (Negative); Nitrite-Dipstick Negative (Negative); Occult Blood-Urine 150 /ul (Negative); Protein-Dipstick Negative (Negative); Urine Bilirubin Dipstick Negative (Negative); Urine Clarity Clear (Clear); Urine Urobilinogen Normal (Normal); Urine pH 6.5 (5.0 - 8.0)
[2018-01-22 03:14] LABS: Bacteria RARE /hpf (None Seen); Red Blood Cells-Urine 0-5 SEEN /hpf (0-5); Squamous Epithelial Cells - UA 0-5 SEEN /hpf (5-10); White Blood Cells 5-10 SEEN /hpf (0-5)
--- NOTE | 2018-01-22 07:54 | PCM.PN.OB ---
Subjective: No CP, SOB. Needs encouragement to ambulate. - Physical Exam General: Alert, Oriented x3 Abdomen: Soft, Non-Distended, - - FF below U. Dressing dry and intact Vital Signs Temp Pulse Resp BP Pulse Ox 97.7 F L 69 16 101/60 98 01/22/18 01:10 01/22/18 01:10 01/22/18 01:10 01/22/18 01:10 01/22/18 01:10 Oxygen Delivery Method Room Air Weight: 131 lb 8 oz Body Mass Index (BMI) 24.8 Intake and Output for Last 24 Hours 01/20/18 01/21/18 01/22/18 23:59 23:59 23:59 Intake Total 2667 / 2667 Output Total 2700 / 2700 800 / 800 Balance -33 / -33 -800 / -800 Laboratory Tests Past 24 Hrs 01/21/18 01/22/18 12:05 01:40 Hgb 8.1 L Urine Color Straw Urine Clarity Clear Urine pH 6.5 Ur Specific [place] 1.010 Urine Protein Negative Urine Glucose (UA) Normal Urine Ketones Negative Urine Occult Blood 150 H Urine Nitrite Negative Urine Bilirubin Negative Urine Urobilinogen Normal Ur Leukocyte Esterase 25 H Urine RBC 0-5 SEEN Urine WBC 5-10 SEEN Ur Squamous Epith Cells 0-5 SEEN Urine Bacteria RARE Urine Mucus 0 SEEN Medical Necessity - Tobacco Use Smoking Status: Former smoker Assessment/Plan All Active Problems (Last Reviewed 01/19/18 @ 13:32 by Trini Alba) Bloody discharge from nipple (Acute) Anemia during in third trimester (Acute) Rubella non-immune status, antepartum (Acute) screening encounter (Acute) Supervision of normal (Acute) Abdominal pain (Resolved) Bleeding in early (Resolved) Constipation during (Resolved) False labor (Resolved) labor in third trimester (Resolved) Subchorionic hematoma in first trimester (Resolved) LTPCS malpresentation POD #2: Encourage ambulation. Pain controlled with current meds. . Rubella nonimmune-needs MMR
[2018-01-22 07:57] VITALS: BP 101/62; PULSE 84; RESP 16; TEMP 36.9; O2SAT 100
[2018-01-22] MEDS: Acetaminophen 500 MG Tablet 1000 MG PO ×2 (09:31→18:42)
[2018-01-22] MEDS: oxyCODONE 5 MG Tablet PO (12:19)
[2018-01-22] MEDS: Senna/Docusate Sodium 1 Tablet PO (12:19)
[2018-01-22 13:45] VITALS: BP 130/70; PULSE 84; RESP 16; TEMP 36.6; O2SAT 97
--- NOTE | 2018-01-22 18:52 | NURSING ---
PHQ-9 completed on 01/21/2018. Form entered into computer at this time, 01/22/2018 at 1852. For remains in paper chart.
[2018-01-22 19:50] VITALS: BP 97/51; PULSE 98; RESP 18; TEMP 37.2; O2SAT 99
[2018-01-23] MEDS: oxyCODONE 5 MG Tablet PO ×4 (02:43→21:30)
[2018-01-23 02:45] VITALS: BP 101/64; PULSE 70; RESP 18; TEMP 36.3; O2SAT 99
[2018-01-23] MEDS: Phenazopyridine 95 MG Tablet PO ×3 (05:08→22:28)
[2018-01-23] MEDS: Ketorolac 10 MG Tablet PO ×2 (05:12→13:40)
--- NOTE | 2018-01-23 08:16 | PCM.PN.OB ---
Subjective: No CP, SOB. Continues to complain persistent headache. Better when sitting up. No improvement with current pain meds. - Physical Exam General: Oriented x3, Cooperative Abdomen: Soft, Non-Distended, - - FF below U. Dressing dry and intact. Vital Signs Temp Pulse Resp BP Pulse Ox 97.4 F L 70 18 101/64 99 01/23/18 02:45 01/23/18 02:45 01/23/18 02:45 01/23/18 02:45 01/23/18 02:45 Oxygen Delivery Method Room Air Weight: 131 lb 8 oz Body Mass Index (BMI) 24.8 Intake and Output for Last 24 Hours 01/21/18 01/22/18 01/23/18 23:59 23:59 23:59 Output Total 800 / 800 Balance -800 / -800 Medical Necessity - Tobacco Use Smoking Status: Former smoker Assessment/Plan All Active Problems (Last Reviewed 01/19/18 @ 13:32 by Trini Alba) Post-dates (Acute) Bloody discharge from nipple (Acute) Anemia during in third trimester (Acute) Rubella non-immune status, antepartum (Acute) screening encounter (Acute) Supervision of normal (Acute) Abdominal pain (Resolved) Bleeding in early (Resolved) Constipation during (Resolved) False labor (Resolved) labor in third trimester (Resolved) Subchorionic hematoma in first trimester (Resolved) LTPCS malpresentation POD #3: well. Encourage to ambulate, force fluids. Consult Dr. Yepez: try fioricet for headache and dc aceteminophen. Needs MMR.
[2018-01-23 08:30] VITALS: BP 121/74; PULSE 84; RESP 18; RESP 20; TEMP 37; O2SAT 97
[2018-01-23] MEDS: Senna/Docusate Sodium 1 Tablet PO (08:34)
--- NOTE | 2018-01-23 09:07 | NURSING ---
0840 Gave oxycodone and senokot with instructor. Pt rated pain a 7/10 at the abd and described it as cramping. Instructed pt to eat crackers.
--- NOTE | 2018-01-23 09:37 | NURSING ---
0925 Pt pain reassessed 30 min after adm of medications and stated that her headache has got worse and rated 8/10.
[2018-01-23] MEDS: Acetaminophen/Butalbital/Caffe 1 Tablet PO ×2 (10:15→15:08)
--- NOTE | 2018-01-23 13:31 | NURSING ---
The nursing officer reviewed the charting completec by Brooke Snyder.
[2018-01-23 13:53] VITALS: BP 109/71; PULSE 84; RESP 18; TEMP 36.4; O2SAT 98
[2018-01-23 20:15] VITALS: BP 105/65; PULSE 89; RESP 17; TEMP 36.8; O2SAT 95
[2018-01-24] MEDS: oxyCODONE 5 MG Tablet PO ×4 (01:32→13:22)
[2018-01-24 01:34] VITALS: BP 106/61; PULSE 85; RESP 16; TEMP 36.8; O2SAT 94
[2018-01-24] MEDS: Phenazopyridine 95 MG Tablet PO (05:41)
[2018-01-24] MEDS: Naproxen 250 MG Tablet PO (07:24)
[2018-01-24] MEDS: Senna/Docusate Sodium 1 Tablet PO (07:24)
--- NOTE | 2018-01-24 07:42 | PCM.PN.OB ---
Subjective: No CP, SOB. Ambulating better. No longer with headache. - Physical Exam General: Alert, Oriented x3 Abdomen: Soft, Non-Distended, - - FF below U. Dressing dry and intact. Minimal tenderness Vital Signs Temp Pulse Resp BP Pulse Ox 98.2 F 85 16 106/61 94 01/24/18 01:34 01/24/18 01:34 01/24/18 01:34 01/24/18 01:34 01/24/18 01:34 Oxygen Delivery Method Room Air Weight: 131 lb 8 oz Body Mass Index (BMI) 24.8 Medical Necessity - Tobacco Use Smoking Status: Former smoker Assessment/Plan All Active Problems (Last Reviewed 01/19/18 @ 13:32 by Trini Alba) Post-dates (Acute) Bloody discharge from nipple (Acute) Anemia during in third trimester (Acute) Rubella non-immune status, antepartum (Acute) screening encounter (Acute) Supervision of normal (Acute) Abdominal pain (Resolved) Bleeding in early (Resolved) Constipation during (Resolved) False labor (Resolved) labor in third trimester (Resolved) Subchorionic hematoma in first trimester (Resolved) LTPCS malpresentation: Routine care. well. Pain controlled. Home today. Needs MMR
--- NOTE | 2018-01-24 07:53 | DS.PCM_ITS ---
Discharge Date and Diagnosis Date of Admission: 10/22/14 - Secondary Discharge Diagnosis Chronic Problems (Last Reviewed 01/19/18 @ 13:32 by Trini Alba) Depression (Chronic) [facility] Course and Treatment Operations: [email or web address] Summary of Care Provided: The patient is a 27 year old F [] - Physical Exam Vital Signs Temp Pulse Resp BP Pulse Ox 98.2 F 85 16 106/61 94 01/24/18 01:34 01/24/18 01:34 01/24/18 01:34 01/24/18 01:34 01/24/18 01:34 Oxygen Delivery Method Room Air Weight: 131 lb 8 oz Body Mass Index (BMI) 24.8 Home Medications: Medications to take at Discharge Cyanocobalamin (Vitamin B-12) [B-12] 50 mcg PO DAILY 12/10/17 Naproxen 500 mg PO BID PRN #60 tablet 01/24/18 Oxycodone HCl/Acetaminophen [Percocet 5/325] 1 - 2 tablet PO Q4H PRN PRN 3 Days #15 tablet 01/24/18 Following Prescrptions Were Given to Patient: Oxycodone HCl/Acetaminophen [Percocet 5/325] 1 - 2 tablet PO Q4H PRN PRN 3 Days #15 tablet PRN Reason: Pain Naproxen 500 mg PO BID PRN #60 tablet PRN Reason: Pain Primary Care Physician: Quan Ramires DO [Primary Care Provider] - Medical Necessity - Tobacco Use Smoking Status: Former smoker Meaningful Use Info Meaningful Use Diagnoses (Choose all that apply): None applicable
--- NOTE | 2018-01-24 07:54 | DCINST_ITS ---
Additional Instructions: If you experience any of the following, contact your healthcare provider. * Bleeding that soaks a pad every hour for 2 hours * Fever 100.4 or higher * Unrelieved incision or abdominal pain * Swelling, redness, discharge or bleeding from your incision or episiotomy site * Your incision begins to separate * Problems urinating (including inability to urinate or burning while urinating). * Visual changes * Severe headache * Flu-like symptoms * Pain or redness in one of both of your breasts * Pain, warmth, tenderness or swelling in your legs, especially the calf area * Frequent nausea and vomiting * Symptoms of depression or anxiety If you experience any of the following, call 911 or go to the nearest Emergency Room. * Chest pain * Problems breathing * Seizure activity * Partial or complete paralysis of a body part, slurred speech, weakness or drooping of the face, or a sudden inability to walk or hold your balance Allergies/Adverse Reactions: Allergies benzonatate Allergy (Verified 01/18/18 19:35) Vomiting oxycodone Allergy (Verified 01/18/18 19:35) Shortness of breath prazosin Allergy (Verified 01/18/18 19:35) Swelling ziprasidone HCl [From Geodon] Allergy (Verified 01/18/18 19:35) Other chest pressure ziprasidone mesylate [From Geodon] Allergy (Verified 01/18/18 19:35) Other chest pressure aripiprazole [From Abilify] Adverse Reaction (Verified 01/18/18 19:35) Other states she cant remember rx citalopram hydrobromide [From Celexa] Adverse Reaction (Verified 01/18/18 19:35) Other famotidine [From Pepcid] Adverse Reaction (Verified 01/18/18 19:35) Other iron Adverse Reaction (Verified 01/18/18 19:35) Other Constipation from oral iron supplements lithium Adverse Reaction (Verified 01/18/18 19:35) Other mirtazapine [From Remeron] Adverse Reaction (Verified 01/18/18 19:35) Itching olanzapine Adverse Reaction (Verified 01/18/18 19:35) Other MON LINYAH Adverse Reaction (Uncoded 01/18/18 19:35) Other Medications to take at Discharge Cyanocobalamin (Vitamin B-12) [B-12] 50 mcg PO DAILY 12/10/17 Naproxen 500 mg PO BID PRN #60 tablet 01/24/18 Oxycodone HCl/Acetaminophen [Percocet 5/325] 1 - 2 tablet PO Q4H PRN PRN 3 Days #15 tablet 01/24/18 The following prescriptions were given: Oxycodone HCl/Acetaminophen [Percocet 5/325] 1 - 2 tablet PO Q4H PRN PRN 3 Days #15 tablet PRN Reason: Pain Naproxen 500 mg PO BID PRN #60 tablet PRN Reason: Pain Follow-Up: Call to make an appointment with your doctor for an incision check in 1-2 weeks. You will also need a 6 week post- follow up appointment. Test results from this visit will be discussed in further detail at your follow- up appointment, if applicable. Primary Care Physician: Quan Ramires DO [Primary Care Provider] -
[2018-01-24 08:00] VITALS: BP 109/65; PULSE 89; RESP 14; TEMP 36.9; O2SAT 95
[2018-01-24 11:15] VITALS: BP 101/61; PULSE 79; RESP 14; TEMP 36.8; O2SAT 95
== END 2018-01-24 13:45 | disposition home or self-care (01) | DRG 540 ==
PROVIDERS: Admitting Provider Obstetrics & Gynecology; Family Provider Student in an Organized Health Care Education/Training Program; PCP Student in an Organized Health Care Education/Training Program; Referring Provider Obstetrics & Gynecology; Visit Provider Obstetrics & Gynecology
DX: O64.2XX0 Obstructed labor due to face presentation, not applicable or unspecified (principal); Z3A.41 41 weeks gestation of pregnancy; Z37.0 Single live birth; O99.02 Anemia complicating childbirth; D64.9 Anemia, unspecified; O99.344 Other mental disorders complicating childbirth; F32.9 Major depressive disorder, single episode, unspecified; O62.2 Other uterine inertia; O48.0 Post-term pregnancy; O76 Abnormality in fetal heart rate and rhythm complicating labor and delivery; Z87.891 Personal history of nicotine dependence
CPT/HCPCS: 59025; 59050; 76815; 81001; 85018; 85027; 86850; 86900; 99218; J7050; J7120; A4216; G0378; J2405

== ENCOUNTER 2018-02-08 15:00 | Outpatient (CLI) | payer MEDICAID, SELFPAY | END 2018-02-08 15:40 | disposition home or self-care (01) | LOC: WPOUT 15:06 → WP 15:07 | PROVIDERS: Family Provider Student in an Organized Health Care Education/Training Program; PCP Student in an Organized Health Care Education/Training Program; Referring Provider Obstetrics & Gynecology; Visit Provider Obstetrics & Gynecology | DX: R63.3 Feeding difficulties (principal) | CPT/HCPCS: 96152 ==

== ENCOUNTER → 2019-03-24 14:10 | Outpatient (CLI) | payer SELFPAY ==
[2018-04-23 10:13] VITALS: BMI 20.8
--- NOTE | 2019-03-24 14:11 | US_ITS ---
STUDY: ULTRASOUND TRANSVAGINAL CLINICAL: Female, 28 years old. CHECK IUD DUE TO PELVIC PAIN TECHNIQUE: Transvaginal COMPARISON: None. FINDINGS: Normal uterine size measuring 8.8 x 6.1 x 4.0 cm. cm in maximal craniocaudal dimension. There are no myometrial masses. Normal endometrial thickness measuring 4.8 mm. There are no endometrial masses, and there is no fluid in the endometrial cavity. IUD is noted within the fundal myometrial canal. Normal uterine cervix. Normal right ovary, measuring 2.4 x 2.4 x 1.7 cm. There are multiple follicles without a dominant cyst. Normal left ovary, measuring 3.3 x 3.1 x 2.1 cm. There are multiple follicles without a dominant cyst. There is mild free fluid in the dependent portion of the pelvis. Polycystic ovary disease: No. US/Pelvic (Non ) IMPRESSION: IUD within the fundal endometrial canal. Mild free fluid. Electronically Signed: Reginald Esteban MD (Brooks) at 13:17 EST , Service support ,
--- NOTE | 2019-03-24 14:11 | US_ITS ---
STUDY: ULTRASOUND TRANSVAGINAL CLINICAL: Female, 28 years old. CHECK IUD DUE TO PELVIC PAIN TECHNIQUE: Transvaginal COMPARISON: None. FINDINGS: Normal uterine size measuring 8.8 x 6.1 x 4.0 cm. cm in maximal craniocaudal dimension. There are no myometrial masses. Normal endometrial thickness measuring 4.8 mm. There are no endometrial masses, and there is no fluid in the endometrial cavity. IUD is noted within the fundal myometrial canal. Normal uterine cervix. Normal right ovary, measuring 2.4 x 2.4 x 1.7 cm. There are multiple follicles without a dominant cyst. Normal left ovary, measuring 3.3 x 3.1 x 2.1 cm. There are multiple follicles without a dominant cyst. There is mild free fluid in the dependent portion of the pelvis. Polycystic ovary disease: No. US/Transvaginal Non- IMPRESSION: IUD within the fundal endometrial canal. Mild free fluid. Electronically Signed: Reginald Esteban MD (Brooks) at 13:17 EST , Service support ,
== END ==
PROVIDERS: Family Provider Student in an Organized Health Care Education/Training Program; PCP Student in an Organized Health Care Education/Training Program; Referring Provider Obstetrics & Gynecology; Visit Provider Obstetrics & Gynecology
DX: Z30.431 Encounter for routine checking of intrauterine contraceptive device (principal)
CPT/HCPCS: 76830; 76856; 93976

== ENCOUNTER 2019-05-24 14:32 | Emergency (ER) | payer SELFPAY ==
[2019-05-14 14:14] VITALS: BMI 20.8
[2019-05-24 14:33] VITALS: BP 124/84; PULSE 84; RESP 18; TEMP 36.1; O2SAT 99; BMI 21.5
--- NOTE | 2019-05-24 14:52 | EKG12_ITS ---
Test Reason : OTHER/PAIN Blood Pressure : / mmHG Vent. Rate : 062 BPM Atrial Rate : 062 BPM P-R Int : 156 ms QRS Dur : 068 ms QT Int : 396 ms P-R-T Axes : 058 065 060 degrees QTc Int : 401 ms Normal sinus rhythm with sinus arrhythmia Normal ECG Confirmed by MARKOS AZLU, NASEEM ([id number]), assignment desk editor NARAYAN MOONEY ([id number]) on 05/26/2019 10:14:19 AM Referred By: TAMANNA Confirmed By:NASEEM BURROWS MD
--- NOTE | 2019-05-24 15:08 | ED.DCSUM_ITS ---
History of Present Illness Chief Complaint: Other, Pain/Inj Informant: Patient Onset: Today - 3-4 hrs Activity at onset: Rest Timing: Continuous Quality: - - doesn't feel good Location: Left Chest - and into right axillary area Current Severity: Mild Maximum Severity: Mild Worsened By: Breathing. Not Worsened By: Movement of Arm, Movement of Torso Relieved By: - - lying supine helps some Associated Symptoms: - - left low back/buttock pain. Negative for: Nausea, Vo miting, Diaphoresis, Dyspnea, Cough, Fever, Lightheadedness, Palpitations Narrative: Healthy 28-year-old presents with chest discomfort in the left side that has a pleuritic component for the past several hours. She denies any symptoms of pain or swelling in her legs or history of blood clots but she is concerned that she may have 1, she complains of pain in her left buttock that is worse with certain movements and positions, does not radiate down her leg, she denies any bowel or bladder dysfunction or numbness anywhere including her legs or groin/perineum. Prior Similar Symptoms: Yes - unk etiology - Past Medical History (1) Depression Status: Chronic Comment: keegan Past Medical History - Allergies and Home Meds Allergies/Adverse Reactions: Allergies benzonatate Allergy (Verified 05/24/19 14:35) Vomiting oxycodone Allergy (Verified 05/24/19 14:35) Shortness of breath prazosin Allergy (Verified 05/24/19 14:35) Swelling ziprasidone HCl [From Geodon] Allergy (Verified 05/24/19 14:35) Other chest pressure ziprasidone mesylate [From Geodon] Allergy (Verified 05/24/19 14:35) Other chest pressure aripiprazole [From Abilify] Adverse Reaction (Verified 05/24/19 14:35) Other states she cant remember rx citalopram hydrobromide [From Celexa] Adverse Reaction (Verified 05/24/19 14:35) Other famotidine [From Pepcid] Adverse Reaction (Verified 05/24/19 14:35) Other iron Adverse Reaction (Verified 05/24/19 14:35) Other Constipation from oral iron supplements lithium Adverse Reaction (Verified 05/24/19 14:35) Other mirtazapine [From Remeron] Adverse Reaction (Verified 05/24/19 14:35) Itching olanzapine Adverse Reaction (Verified 05/24/19 14:35) Other MON HEIDIH Adverse Reaction (Uncoded 05/24/19 14:35) Other Primary Care Physician: Quan Ramires DO [Primary Care Provider] - Surgical History: appendectomy Lives: With Family Smoking Status: Former smoker - Family History Maternal Family History: Family History (Last Reviewed 05/14/19 @ 14:14 by Nilda Patel) Aunt Diabetes Family History: Reports: No pertinent history Paternal Family History: Family History (Last Reviewed 05/14/19 @ 14:14 by Nilda Patel) Aunt Diabetes Family History: Reports: No pertinent history Review of Systems General: Denies: Chills, Fever, Sweats Eyes: Denies: Visual changes - bilaterally, Diplopia ENT: Denies: Rhinorrhea, Sore throat Cardiovascular: Reports: Chest pain. Denies: Palpitations, Heart racing Respiratory: Denies: Dyspnea, Cough, Dyspnea on exertion Gastrointestinal: Denies: Abdominal pain, Nausea, Vomiting, Diarrhea, Melena, Hematochezia Genitourinary: Denies: Dysuria, Hematuria, Frequency Musculoskeletal: Reports: Back pain. Denies: Swelling, Extremity Pain Skin: Denies: Rash, Wounds Neurological: Denies: Headache, Weakness, Parasthesia, Numbness Physical Exam Vital Signs/Narrative: Vital Signs Temp Pulse Resp BP Pulse Ox 05/24/19 14:33 97 F L 84 18 124/84 H 99 Inital Vital Signs reviewed: Yes General: Well nourished, Well developed, No Acute Distress Head: Normocephalic, Atraumatic Eyes: Perrl, EOMI ENT: Moist mucous membranes, No rhinorrhea Neck: Supple, Nontender Cardiovascular: Regular rate, Regular rhythm, No murmurs. Negative for: Tachycardia Respiratory: No distress, CTA bilaterally, Chest nontender Abdomen: Soft, Nontender, Nondistended, Normal bowel sounds Back: Nontender, Normal Inspection, - - Negative straight leg raises bilateral lower extremities, to over 45 degrees. Extremities: Nontender, No edema. Negative for: Calf Tenderness Skin: Normal color, No rash Neurological: Alert, Oriented x3, Cranial nerves II-XII grossly intact, Normal Strength, Normal Sensation, Normal DTR, Normal Gait Psychological: Normal affect, Normal Mood Diagnostic/Tx/Re-eval Impressions Chest X-Ray 05/24/19 15:16 IMPRESSION: No acute thoracic pathology. Electronically Signed: Arun Winkler, at 15:32 EST Tel , Service support , Chest CTA 05/24/19 16:42 IMPRESSION: Normal CTA chest examination, without a demonstrated pulmonary embolism or arterial dissection. Electronically Signed: Gabriele Yu, DO at 18:19 EST Tel , Service support , 05/24/19 15:16 Chest PA and Lateral [RAD] Stat 05/24/19 16:42 CTA Chest W/WO Contrast [CT] Stat Laboratory Results 05/24/19 05/24/19 05/24/19 15:10 15:10 15:10 WBC 6.2 RBC 4.61 Hgb 14.1 Hct 41.8 MCV 90.7 MCH 30.6 MCHC 33.7 RDW Std Deviation 39.6 RDW Coeff of Andrea 12.0 Plt Count 242 MPV 9.3 Immature Gran % (Auto) 0.300 Neut % (Auto) 66.4 Lymph % (Auto) 23.2 [place] % (Auto) 9.0 Eos % (Auto) 0.6 Baso % (Auto) 0.5 Absolute Neuts (auto) 4.1 Absolute Lymphs (auto) 1.44 Nucleated RBC % 0 D-Dimer Quant (PE/DVT) 0.65 H* Sodium Potassium Chloride Carbon Dioxide Anion Gap BUN Creatinine Estim Creat Clear Calc Est GFR (MDRD) Af Amer Est GFR (MDRD) Non-Af BUN/Creatinine Ratio Glucose Calcium Troponin I < 0.015 05/24/19 15:10 WBC RBC Hgb Hct MCV MCH MCHC RDW Std Deviation RDW Coeff of Andrea Plt Count MPV Immature Gran % (Auto) Neut % (Auto) Lymph % (Auto) [place] % (Auto) Eos % (Auto) Baso % (Auto) Absolute Neuts (auto) Absolute Lymphs (auto) Nucleated RBC % D-Dimer Quant (PE/DVT) Sodium 140 Potassium 3.5 Chloride 111 H Carbon Dioxide 26.0 Anion Gap 3 L BUN 10 Creatinine 0.69 Estim Creat Clear Calc 89.96 Est GFR (MDRD) Af Amer 127 Est GFR (MDRD) Non-Af 105 BUN/Creatinine Ratio 14.4 Glucose 101 Calcium 8.6 Troponin I - Rhythm Strip Rhythm Strip: Sinus Rhythm Rate: 80 Ectopy: None Treatment: Toradol IV Repeat Eval: Pain Free - Medical Decision Making Patient was given Toradol and feels much better. Her chest x-ray and EKG were normal, but d-dimer was elevated a slight amount. Therefore CT angiography was obtained after verifying normal renal function, it shows no pulmonary embolus. Patient is reassured, I suspect this is either pleurisy or muscular or some other type of noncardiac nonvascular chest discomfort. It is not angina. I reassured her that her pain in her buttock could represent pain from a pinched nerve but more likely is musculoskeletal. Anti-inflammatories are advised, she is discharged stable condition and advised to follow-up. ED Disposition - Plan for ED Patient: Disposition: Home or Assisted Living Diagnosis: Left low back pain, Pleurisy Instructions: Pleurisy, BACK PAIN (Acute or Chronic) Referrals: Quan Ramires, [Primary Care Provider] - 1 Week if not improving Additional Instructions: Ibuprofen as needed for pains. May use Aleve/naproxen sodium instead if you want, but not both together.
--- NOTE | 2019-05-24 15:16 | RAD_ITS ---
STUDY: X-RAY CHEST REASON FOR EXAM: Female, 28 years old. Chest pain TECHNIQUE: Frontal and lateral views of the chest COMPARISON: 03/19/2015 FINDINGS: The lungs are clear. There are no pleural effusions. There is no pneumothorax. The heart is normal in size. The visualized osseous structures are within normal limits. RAD/Chest PA and Lateral IMPRESSION: No acute thoracic pathology. Electronically Signed: Arun Winkler, at 15:32 EST Tel , Service support ,
[2019-05-24] MEDS: Ketorolac 30 MG/ML Syringe IV (15:17)
[2019-05-24 16:03] LABS: D-Dimer Quantitative (DVT/PE) 0.65 FEU/ug/m (0.27-0.49)
--- NOTE | 2019-05-24 16:42 | CT_ITS ---
STUDY: CTA CHEST REASON FOR EXAM: Female, 28 years old. LEFT BUTTOCK PAIN-WORSE WITH MOVEMENT -- PLEURITIC LEFT SIDE CHEST [id number] HOURS -- SURG-GB,APPY RADIATION DOSAGE (If Supplied By Facility): CTDIvol = ( 5.49 ) mGy, DLP = ( 106.71 ) mGycm TECHNIQUE: The examination was performed with the intravenous administration of 75CC ISOVUE 370. Post-processing of the angiographic images was performed, with multiplanar reformation and 3D reconstruction. Individualized dose optimization techniques were used for this CT. COMPARISON: None. FINDINGS: Normal enhancement of the main pulmonary artery and right and left pulmonary arteries. Normal enhancement of the bilateral peripheral pulmonary arteries. There is no demonstrated pulmonary embolism. Normal thoracic aorta and visualized great vessels. There is no demonstrated aortic dissection. Normal heart and pericardium. Normal mediastinum. Normal hilar regions. Normal visualized trachea and bronchi. The lungs are well expanded. Normal pulmonary parenchyma. Normal pleura. Normal chest wall structures. Normal osseous structures. Normal visualized upper abdomen. CT/CTA Chest W/WO Contrast IMPRESSION: Normal CTA chest examination, without a demonstrated pulmonary embolism or arterial dissection. Electronically Signed: Gabriele Yu DO at 18:19 EST Tel , Service support ,
[2019-05-24 17:18] LABS: Anion Gap 3 (5-15); BUN 10 mg/dL (7-18); BUN/Creat Ratio 14.4 RATIO (10-20); Calcium,Total 8.6 mg/dL (8.5-10.1); Chloride 111 mmol/L (98-107); Creatinine, Serum 0.69 mg/dL (0.55-1.02); EST Glomerular Filtration Rate 105 mL/min (>60); Est Glom Filt Rate - Afr Amer 127 mL/min (>60); Estimated Creatinine Clearance 89.96 ml/min; Glucose 101 mg/dL (74-106); Potassium 3.5 mmol/L (3.5-5.1); Sodium Level 140 mmol/L (136-145)
[2019-05-24 17:23] LABS: Absolute Lymphocyte Count 1.44 X10^3/uL (0.83-4.51); Absolute Neutrophil Count 4.1 X10^3/uL (2.0-7.7); Basophil# 0.03 X10^3/uL; Basophil% 0.5 % (0-1); Eosinophil# 0.04 X10^3/uL; Eosinophils% 0.6 % (0-5); Hematocrit 41.8 % (37-47); Hemoglobin 14.1 g/dL (12.0-15.0); Lymphocyte # 1.44 X10^3/ul (4.0); Lymphocyte % 23.2 % (19-41); Mean Corp Hgb Conc 33.7 g/dL (32-36); Mean Corpuscular Hgb 30.6 pg (27.0-32.0); Mean Corpuscular Volume 90.7 fL (81-99); Mean Platelet Vol. 9.3 fl (6.2-12.0); Monocyte# 0.56 X10^3/uL; NRBC Flagged by Analyzer 0 % (0-5); Neutrophil # 4.11 X10^3/uL (2.7-7.7); Neutrophil % 66.4 % (47-70); Platelet Count 242 K/mm3 (150-450); RBC Distribution Width SD 39.6 fl (35.1-43.9); Red Blood Count 4.61 M/mm3 (4.2-5.4); White Blood Count 6.2 K/mm3 (4.4-11.0)
[2019-05-24 17:53] VITALS: BP 99/67; PULSE 57; RESP 15; O2SAT 100
[2019-05-24 18:34] VITALS: BP 109/80; PULSE 69; RESP 16; O2SAT 99
== END 2019-05-24 18:35 | disposition home or self-care (01) ==
PROVIDERS: Emergency Provider Emergency Medicine; PCP Student in an Organized Health Care Education/Training Program
DX: M54.5 Low back pain (principal); R09.1 Pleurisy; R79.89 Other specified abnormal findings of blood chemistry; F32.9 Major depressive disorder, single episode, unspecified; Z79.899 Other long term (current) drug therapy; Z87.891 Personal history of nicotine dependence
CPT/HCPCS: 71046; 71275; 80048; 84484; 85025; 85379; 93005; 96361; 96374; 99284; J7030; Q9967; A4216

== ENCOUNTER → 2019-12-05 | Outpatient (CLI) | payer SELFPAY ==
[2019-12-05 12:13] VITALS: BMI 21.5
[2019-12-05 13:44] LABS: Amphetamine Urine VISTA NEGATIVE (<1000 ng/mL); Barbiturate Urine VISTA NEGATIVE (< 200 ng/mL); Benzodiazepine Urine VISTA NEGATIVE (< 200 ng/mL); Cocaine Urine VISTA NEGATIVE (< 300 ng/mL); Ecstacy Urine VISTA NEGATIVE (< 500 ng/mL); Methadone Urine VISTA NEGATIVE (< 300 ng/mL); PCP Urine VISTA NEGATIVE (< 25 ng/mL); THC Urine VISTA NEGATIVE (< 50 ng/mL); Vista UDS pH Range 6
== END | disposition home or self-care (01) ==
LOC: LABSPEC 13:05
PROVIDERS: PCP Student in an Organized Health Care Education/Training Program; Referring Provider Obstetrics & Gynecology; Visit Provider Obstetrics & Gynecology
DX: Z34.80 Encounter for supervision of other normal pregnancy, unspecified trimester (principal)
CPT/HCPCS: 80307; 87086; 87088

== ENCOUNTER 2019-12-20 15:46 | Emergency (ER) | payer SELFPAY ==
[2019-12-05 12:13] VITALS: BMI 21.5
[2019-12-20 15:46] VITALS: BP 108/58; PULSE 79; RESP 16; TEMP 36.4; BMI 21.4
--- NOTE | 2019-12-20 15:55 | RAD_ITS ---
STUDY: X-RAY - LEFT SHOULDER REASON FOR EXAM: Female, 28 years old. Fall yesterday with arm outstretched, pain. TECHNIQUE: 4 view(s) of the shoulder. COMPARISON: None. FINDINGS: Normal glenohumeral articulation. Normal acromioclavicular joint. Normal acromion. Normal humeral head and visualized proximal humerus. The soft tissue structures are unremarkable. Normal visualized pulmonary apex. RAD/Shoulder min 2 Views IMPRESSION: Normal x-ray examination of the shoulder. Electronically Signed: Pete Rodriguez MD at 16:28 EDT , Service support ,
--- NOTE | 2019-12-20 15:57 | ED.VIS.GEN ---
History of Present Illness Chief Complaint: Upper Extremity Injury Informant: Patient Onset: Yesterday Context: Sudden Onset Timing: Continuous Current Severity: Moderate Maximum Severity: Moderate Narrative: The patient is a 28-year-old female that presents to the emergency department with left shoulder injury. The patient was in her normal state of health. She states yesterday, she was ambulating. She states she fell on an outstretched arm of her left. She struck her head but did not lose consciousness. Since then, she is had difficulty moving the shoulder. She denies other injury. She is otherwise been in her normal state of health. She does not take anything for it. Prior similar symptoms: No Recent Illness/Hospitalization: No Past Medical History - Allergies and Home Meds Allergies/Adverse Reactions: Allergies benzonatate Allergy (Verified 12/20/19 16:09) Vomiting oxycodone Allergy (Verified 12/20/19 16:09) Shortness of breath prazosin Allergy (Verified 12/20/19 16:09) Swelling ziprasidone HCl [From Geodon] Allergy (Verified 12/20/19 16:09) Other chest pressure ziprasidone mesylate [From Geodon] Allergy (Verified 12/20/19 16:09) Other chest pressure aripiprazole [From Abilify] Adverse Reaction (Verified 12/20/19 16:09) Other states she cant remember rx citalopram hydrobromide [From Celexa] Adverse Reaction (Verified 12/20/19 16:09) Other famotidine [From Pepcid] Adverse Reaction (Verified 12/20/19 16:09) Other iron Adverse Reaction (Verified 12/20/19 16:09) Other Constipation from oral iron supplements lithium Adverse Reaction (Verified 12/20/19 16:09) Other mirtazapine [From Remeron] Adverse Reaction (Verified 12/20/19 16:09) Itching olanzapine Adverse Reaction (Verified 12/20/19 16:09) Other MON LINYAH Adverse Reaction (Uncoded 12/20/19 16:09) Other Primary Care Physician: Quan Ramires DO [Primary Care Provider] - Prior records reviewed: Yes Past Medical History: None Surgical History: appendectomy Smoking Status: Never smoker - Family History Maternal Family History: Family History (Last Reviewed 12/05/19 @ 11:28 by Randee Stock) Aunt Diabetes Family History: Reports: No pertinent history Paternal Family History: Family History (Last Reviewed 12/05/19 @ 11:28 by Randee Stock) Aunt Diabetes Family History: Reports: No pertinent history Review of Systems General: Denies: Chills, Fever, Sweats Eyes: Denies: Visual changes - bilaterally, Diplopia ENT: Denies: Rhinorrhea, Sore throat Cardiovascular: Denies: Chest pain, Palpitations Respiratory: Denies: Dyspnea, Cough, Dyspnea on exertion Gastrointestinal: Denies: Abdominal pain, Nausea, Vomiting, Diarrhea, Melena, Hematochezia Genitourinary: Denies: Dysuria, Hematuria, Frequency Musculoskeletal: Denies: Back pain, Extremity Pain Skin: Denies: Rash, Wounds Neurological: Denies: Headache, Weakness, Numbness Physical Exam Vital Signs/Narrative: Vital Signs Temp Pulse Resp BP 12/20/19 15:46 97.6 F L 79 16 108/58 L Inital Vital Signs reviewed: Yes General: Well nourished, Well developed, No Acute Distress Head: Normocephalic, Atraumatic Eyes: Perrl, EOMI ENT: Moist mucous membranes, No rhinorrhea Neck: Supple, Nontender Cardiovascular: Regular rate, Regular rhythm, No murmurs Respiratory: No distress, CTA bilaterally, Chest nontender Abdomen: Soft, Nontender, Nondistended, Normal bowel sounds Back: Nontender, Normal Inspection Extremities: No edema, Tenderness Skin: Normal color, No rash Neurological: Alert, Oriented x3, Cranial nerves II-XII grossly intact, Normal Strength, Normal Sensation Psychological: Normal affect, Normal Mood Diagnostic/Tx/Re-eval Clinical Impression(s) from Imaging Studies Shoulder X-Ray 12/20/19 15:55 IMPRESSION: Normal x-ray examination of the shoulder. Electronically Signed: Pete Rodriguez MD at 16:28 EDT , Service support , - Medical Decision Making The patient presents with a left shoulder injury. She is neurovascular intact. Plain films were obtained. There is no onset acute fracture. Her pulses are normal. I do suspect she may have some strain of the rotator cuff, but there is no gross laxity. She will be placed in a sling for comfort. She was counseled on range of motion exercises. She will be given outpatient orthopedic follow-up as needed. Impression 1. Left shoulder sprain ED Disposition - Plan for ED Patient: Instructions: ED Shoulder Sprain Referrals: Quan Ramires DO [Primary Care Provider] -
[2019-12-20] MEDS: Acetaminophen 500 MG Tablet 1000 MG PO (16:32)
== END 2019-12-20 17:06 | disposition home or self-care (01) ==
PROVIDERS: Emergency Provider Emergency Medicine; PCP Student in an Organized Health Care Education/Training Program
DX: S43.402A Unspecified sprain of left shoulder joint, initial encounter (principal); W19.XXXA Unspecified fall, initial encounter; Y93.9 Activity, unspecified; Y92.9 Unspecified place or not applicable
CPT/HCPCS: 73030; 99283

== ENCOUNTER → 2020-01-06 08:31 | Outpatient (CLI) | payer SELFPAY ==
[2019-12-05 12:13] VITALS: BMI 21.5
[2019-12-20 15:46] VITALS: BMI 21.4
--- NOTE | 2020-01-06 08:40 | US_ITS ---
STUDY: SECOND AND THIRD TRIMESTER OBSTETRICAL ULTRASOUND REASON FOR EXAM: Female, 29 years old ANATOMY LMP: 08/15/2019 TECHNIQUE: Transabdominal TECHNICAL QUALITY: Adequate. PRIOR ULTRASOUND: None. FINDINGS: There is a single intrauterine fetus. The fetus is in a breech presentation. There is demonstrated cardiac activity with a heart rate of 140 bpm. There is a normal amniotic fluid volume. The largest amniotic fluid pocket measures 4.5 cm x 4.6 cm. The amniotic fluid index (VIKAS) is normal. The placenta is anterior and fundal in location and is not low lying. There are Grade 0 placental changes. The cervix measures 3.7 cm in length. The adnexal regions are not visualized. BIOMETRY: BPD: 5.03 cm: 21 weeks, 1 days HC: 18.99 cm: 21 weeks, 1 days AC: 17.06 cm: 22 weeks, 0 days FL: 3.55 cm: 21 weeks, 1 days CI: 77.1% FL/BPD: 70.6% FL/HC: FL/AC: 20.82% HC/AC: 1.11 age by current US: 21 weeks, 2 days. GORDON by current US: 05/16/2020. Estimated weight: 437 grams, +/- 65 grams, 91.6 %. Age by LMP: 20 weeks, 4 days. GORDON by LMP: 05/21/2020. ANATOMY: Gender: Male Cranium: Normal lateral ventricles. Normal choroid plexus. Normal cerebellum. Normal cisterna magna. Normal face, nose and lips. Chest: Normal 4-chamber heart. Abdomen/Pelvis: Normal diaphragm. Normal stomach. Normal abdominal wall. Normal cord insertion. Normal 3 vessel cord. Normal kidneys. Normal bladder. Spine: Normal cervical spine. Normal thoracic spine. Normal lumbar spine. Normal sacrum. Extremities: Normal bilateral upper extremities. Normal bilateral lower extremities. US/OB Anatomy Scan IMPRESSION: Single live intrauterine gestation with a mean gestational age of 21 weeks and 2 days. Electronically Signed: Benny Valentin, at 13:04 EDT , Service support ,
== END ==
PROVIDERS: PCP Student in an Organized Health Care Education/Training Program; Referring Provider Obstetrics & Gynecology; Visit Provider Obstetrics & Gynecology
DX: Z34.90 Encounter for supervision of normal pregnancy, unspecified, unspecified trimester (principal)
CPT/HCPCS: 76805

== ENCOUNTER → 2020-01-07 13:30 | Outpatient (CLI) | payer OTHER, SELFPAY ==
[2020-01-07 12:31] VITALS: BMI 22.4
[2020-01-07 14:16] LABS: Absolute Lymphocyte Count 1.41 X10^3/uL (0.83-4.51); Absolute Neutrophil Count 4.9 X10^3/uL (2.0-7.7); Basophil# 0.02 X10^3/uL; Basophil% 0.3 % (0-1); Eosinophil# 0.04 X10^3/uL; Eosinophils% 0.6 % (0-5); Hematocrit 33.6 % (37-47); Hemoglobin 11.4 g/dL (12.0-15.0); Lymphocyte # 1.41 X10^3/ul (4.0); Mean Corp Hgb Conc 33.9 g/dL (32-36); Mean Corpuscular Hgb 31.8 pg (27.0-32.0); Mean Corpuscular Volume 93.9 fL (81-99); Mean Platelet Vol. 8.7 fl (6.2-12.0); Monocyte# 0.67 X10^3/uL; Monocyte% 9.5 % (0-10); NRBC Flagged by Analyzer 0 % (0-5); Neutrophil # 4.87 X10^3/uL (2.7-7.7); Neutrophil % 69.2 % (47-70); Platelet Count 230 K/mm3 (150-450); RBC Distribution Width CV 13.3 % (11.6-14.6); RBC Distribution Width SD 45.6 fl (35.1-43.9); Red Blood Count 3.58 M/mm3 (4.2-5.4)
== END ==
PROVIDERS: PCP Student in an Organized Health Care Education/Training Program; Referring Provider Obstetrics & Gynecology; Visit Provider Obstetrics & Gynecology
DX: Z34.80 Encounter for supervision of other normal pregnancy, unspecified trimester (principal)
CPT/HCPCS: 36415; 85025; 86850; 86900; 86901

== ENCOUNTER → 2020-02-26 13:59 | Outpatient (CLI) | payer SELFPAY ==
[2020-01-28 10:35] VITALS: BMI 23.0
[2020-02-26 14:26] LABS: Absolute Lymphocyte Count 1.45 X10^3/uL (0.83-4.51); Absolute Neutrophil Count 5.2 X10^3/uL (2.0-7.7); Basophil# 0.01 X10^3/uL; Basophil% 0.1 % (0-1); Eosinophil# 0.02 X10^3/uL; Eosinophils% 0.3 % (0-5); Hemoglobin 10.5 g/dL (12.0-15.0); Lymphocyte # 1.45 X10^3/ul (4.0); Lymphocyte % 19.8 % (19-41); Mean Corp Hgb Conc 32.8 g/dL (32-36); Mean Corpuscular Hgb 30.1 pg (27.0-32.0); Mean Corpuscular Volume 91.7 fL (81-99); Mean Platelet Vol. 8.4 fl (6.2-12.0); Monocyte# 0.68 X10^3/uL; Monocyte% 9.3 % (0-10); NRBC Flagged by Analyzer 0 % (0-5); Neutrophil # 5.15 X10^3/uL (2.7-7.7); Neutrophil % 70.1 % (47-70); Platelet Count 196 K/mm3 (150-450); RBC Distribution Width CV 12.4 % (11.6-14.6); RBC Distribution Width SD 41.1 fl (35.1-43.9); Red Blood Count 3.49 M/mm3 (4.2-5.4); White Blood Count 7.3 K/mm3 (4.4-11.0)
[2020-02-26 14:49] LABS: Glucose Challenge Gest 1H 50g 121 mg/dL (70-140)
== END ==
PROVIDERS: PCP Student in an Organized Health Care Education/Training Program; Referring Provider Obstetrics & Gynecology; Visit Provider Obstetrics & Gynecology
DX: Z34.80 Encounter for supervision of other normal pregnancy, unspecified trimester (principal)
CPT/HCPCS: 36415; 82950; 85025

== ENCOUNTER → 2020-03-10 11:57 | Outpatient (CLI) | payer SELFPAY ==
[2020-03-10 10:58] VITALS: BMI 24.1
[2020-03-10 12:41] LABS: Absolute Lymphocyte Count 1.36 X10^3/uL (0.83-4.51); Absolute Neutrophil Count 4.6 X10^3/uL (2.0-7.7); Basophil# 0.02 X10^3/uL; Basophil% 0.3 % (0-1); Eosinophil# 0.04 X10^3/uL; Eosinophils% 0.6 % (0-5); Hematocrit 32.9 % (37-47); Hemoglobin 10.7 g/dL (12.0-15.0); Lymphocyte # 1.36 X10^3/ul (4.0); Lymphocyte % 20.4 % (19-41); Mean Corp Hgb Conc 32.5 g/dL (32-36); Mean Corpuscular Volume 89.2 fL (81-99); Mean Platelet Vol. 8.9 fl (6.2-12.0); Monocyte# 0.64 X10^3/uL; Monocyte% 9.6 % (0-10); NRBC Flagged by Analyzer 0 % (0-5); Neutrophil # 4.56 X10^3/uL (2.7-7.7); Neutrophil % 68.5 % (47-70); Platelet Count 200 K/mm3 (150-450); RBC Distribution Width CV 12.4 % (11.6-14.6); RBC Distribution Width SD 40.3 fl (35.1-43.9); Red Blood Count 3.69 M/mm3 (4.2-5.4); White Blood Count 6.7 K/mm3 (4.4-11.0)
[2020-03-10 13:32] LABS: ALB/GLOB Ratio 0.6 RATIO (0.9-2.4); AST(SGOT) 16 U/L (15-37); Alanine Aminotransfer ALT/SGPT 14 U/L (13-56); Albumin, Serum 2.7 g/dL (3.2-5.0); Alkaline Phosphatase 100 U/L (45-117); Anion Gap 8 (5-15); BUN 4 mg/dL (7-18); BUN/Creat Ratio 12.2 RATIO (10-20); Calcium,Total 8.2 mg/dL (8.5-10.1); Chloride 105 mmol/L (98-107); Creatinine, Serum 0.33 mg/dL (0.55-1.02); EST Glomerular Filtration Rate 248 mL/min (>60); Est Glom Filt Rate - Afr Amer 300 mL/min (>60); Globulin 4.3 g/dL (2.2-4.2); Glucose 76 mg/dL (74-106); Potassium 3.6 mmol/L (3.5-5.1); Sodium Level 135 mmol/L (136-145)
[2020-03-10 13:51] LABS: HIV - WCH Non-Reactive (Nonreactive); Hepatitis B Surface Antigen Non-Reactive (Nonreactive); Hepatitis C Antibody Non-Reactive (Nonreactive); Rubella IgG Non-Reactive (Nonreactive)
[2020-03-11 02:39] LABS: Rapid Plasmin Reagin (RPR) NONREACTIVE (NONREACTIVE)
== END ==
PROVIDERS: Obstetrics & Gynecology; PCP Student in an Organized Health Care Education/Training Program; Referring Provider Obstetrics & Gynecology; Visit Provider Obstetrics & Gynecology
DX: O26.619 Liver and biliary tract disorders in pregnancy, unspecified trimester (principal); K83.1 Obstruction of bile duct; Z3A.00 Weeks of gestation of pregnancy not specified
CPT/HCPCS: 36415; 80053; 85025; 86592; 86703; 86762; 86803; 86850; 86900; 86901; 87340

== ENCOUNTER → 2020-04-23 | Outpatient (CLI) | payer OTHER, SELFPAY ==
[2020-04-23 08:58] VITALS: BMI 25.1
== END | disposition home or self-care (01) ==
LOC: LABSPEC 13:44
PROVIDERS: PCP Student in an Organized Health Care Education/Training Program; Referring Provider Obstetrics & Gynecology; Visit Provider Obstetrics & Gynecology
DX: Z34.90 Encounter for supervision of normal pregnancy, unspecified, unspecified trimester (principal)
CPT/HCPCS: 87081

== ENCOUNTER 2020-04-29 10:30 | Outpatient (CLI) | payer OTHER, SELFPAY ==
[2020-04-23 08:58] VITALS: BMI 25.1
[2020-04-29] VITALS (8 sets, daily range): BP systolic 112; BP diastolic 64–74; PULSE 80–117; TEMP 36.2–37.4; O2SAT 93–100; BMI 25.4
[2020-04-29] MEDS: Lactated Ringers 1,000 ML 125 ML IV (10:55)
--- NOTE | 2020-04-29 11:00 | HP.PCM_ITS ---
- Problem List (1) 34 weeks gestation of Status: Acute Comment: electronic covid test ordered 04/12/20 (2) Anemia affecting Status: Acute Comment: iron added (3) Breech presentation Status: Acute Comment: plan ECV (4) H/O section Status: Acute Comment: Done for face presentation. Desires (5) Status: Acute Qualifiers: Weeks of gestation: 31 weeks Qualified Code(s): Z3A.31 - 31 weeks gestation of Comment: Declines genetic, carrier, and ntd screening; normal anatomy (6) Rubella non-immune status, antepartum Status: Acute Comment: Recommend vaccination (7) Supervision of other normal Status: Acute Comment: PRR GORDON 05/21/20 PC: Mayank Spouse: Arpan (8) Depression Status: Chronic Qualifiers: Comment: celexa History and Physical Date of Admission: 04/29/20 Intake Vital Signs 04/23/20 Height 5 ft 1 in 04/23/20 Weight: 133 lb 04/23/20 BMI 25.1 04/23/20 BP 117/75 Intake Visit Reasons: 36WK OB Chief Complaint: est ob Key Operator Required: No Is patient in pain?: No Allergies benzonatate Allergy (Verified 04/23/20 08:58) Vomiting oxycodone Allergy (Verified 04/23/20 08:58) Shortness of breath prazosin Allergy (Verified 04/23/20 08:58) Swelling ziprasidone HCl [From Geodon] Allergy (Verified 04/23/20 08:58) Other ziprasidone mesylate [From Geodon] Allergy (Verified 04/23/20 08:58) Other aripiprazole [From Abilify] Adverse Reaction (Verified 04/23/20 08:58) Other citalopram hydrobromide [From Celexa] Adverse Reaction (Verified 04/23/20 08:58) Other famotidine [From Pepcid] Adverse Reaction (Verified 04/23/20 08:58) Other iron Adverse Reaction (Verified 04/23/20 08:58) Other lithium Adverse Reaction (Verified 04/23/20 08:58) Other mirtazapine [From Remeron] Adverse Reaction (Verified 04/23/20 08:58) Itching olanzapine Adverse Reaction (Verified 04/23/20 08:58) Other MON LINYAH Adverse Reaction (Uncoded 04/23/20 08:58) Other Medications evening primrose oil 500 mg capsule 500 mg PO TID 04/23/20 [History Confirmed 04/23/20] Last Menstral Period: 08/15/19 Zika: Zika virus screening: Negative : No PFSH PFSH Medical History Anxiety and depression (Acute) Surgical History H/O section (Acute) Hiatal hernia (Acute) History of appendectomy (Acute) Hx laparoscopic cholecystectomy (Acute) Family History Aunt Diabetes Social History (Updated 04/23/20 @ 09:[address] Beronica Yepez MD) Smoking Status: Never smoker alcohol intake: never substance use type: does not use caffeine: Yes what type of physical activity do you participate in: none willis/jew: mennonite seatbelt use: always do you feel safe at home: Yes additional social history: boyfriend Arpan single- [facility] [place] Pregancy History 2 Elective abortions Hx Para 1 Spontaneous abortions Hx # Term Pregnancies Ectopic pregnancies Hx # Pregnancies Multiple births # of living children 1 Past Pregnancies Del. Date Name GA/Weeks Outcome Route Bth Weight Gen Labor Lgth Anesthesia Del Locatn Provider FOB 01/19/18 Mayank Ramos 41 live - full term C- section Male epidural [facility] Delivery Date: 01/19/18 Face presentation; Carey Guevara HPI 36WK OB : Details: HARPER LEMOS is a 29 year old who presents at 37 weeks for ECV due to breech presentation. she denies any bleeding lof and has good fm no regular ctx OB Visit GORDON Calculator Estimated Delivery Date Method Current WG Current Estimate 05/21/20 LMP (Certain) 36w 0d Other Estimates 05/17/20 Ultrasound #1 36w 4d Expected Delivery Route/Plan TOLAC patient counseled regarding risks/benefits of trial of labor versus repeat . ACOG/uptodate education given to patient. 74 % likelihood of success per calculator TOLAC consent form signed: 04/09/20 Labor Preference labor support person: [] labor intervention preferences: [] pain management options preferred: [] cut cord/dad catch: [] : [] PP control planned: [] discussed possible routes of delivery and associated risks: [] special requests: [] Specific Issue/Plans flu vaccine: declined tdap vaccine: declined rhogam: na LARC form signed: declined movement and labor precautions reviewed. Problem list reviewed and updated with the most current plan of care details and appropriate orders placed. Relevant counseling for the gestational age provided. 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 HC and BPD consistent with LMP. 01/07/20 20w 5d 119 lb 100/62 Negative Negative 150 SM- no vb lof good fm no regular ctx 01/28/20 23w 5d 122 lb 100/64 Negative Negative 145 24 SM - no vb lof good fm nor egular ctx 02/26/20 27w 6d 128 lb 102/64 Negative Negative 145 28 SM- no vb lof good fm nor egular ctx had cbc gct drawn, still needs the rest of NOB labs done- discussed to have drawn next visit 03/10/20 29w 5d 128 lb 102/62 Negative Negative 145 31 SM- no vb lof good fm no regular ctx see PL check aster acids for itching. 03/24/20 31w 5d 131 lb 110/76 Negative Negative 140 33 Cephalic 0 40 -3 GP - no LOF, VB, DFM. Was having more contractions over the weekend. Not painful over last 2 days. GP - no LOF, VB, DFM. Was having more contractions over the weekend. Not painful over last 2 days. denies dysuria. Denies increased discharge. GP - no LOF, VB, DFM. Was having more contractions over the weekend. Not painful over last 2 days. denies dysuria. Denies increased discharge. Cervix closed. R eassurance provided. GP - no LOF, VB, DFM. Was having more contractions over the weekend. Not painful over last 2 days. denies dysuria. Denies increased discharge. Cervix closed. Reassurance provided. PRR - rubella non-immune. 04/05/20 33w 3d 130 lb 6 oz 106/70 Negative Negative 150 MH NST only reactive. 04/09/20 34w 0d 131 lb 118/66 150 34 Cephalic SM- no vb lof good fm no regular ctx tolac larc forms signed 04/23/20 36w 0d 133 lb 117/75 Negative Negative 140 36 Breech 0.5 SM- no vb lof good fm regular ctx gbs done ACOG First Trimester First Trimester: Desire for , Alcohol, Tobacco Cessation, Illicit/Recreational Drug/Substance Use, Intimate Partner Violence, Barriers to care, Unstable Housing, Communication Barriers, Environmental/Work Hazards, Anticipated Course of Care, Toxoplasmosis Precations, Use of Any medications, Sexual activity, Exercise, Dental Care, Sauna/Hot tub use, Seat Belt use, Childbirth classes/Hospital facilities, Travel, Indications for US and Screening for Aneuploidy; discussed Diagnostics Diagnostics Diagnostics Blood Type A POSITIVE 03/10/20 Antibody Screen NEGATIVE 03/10/20 Glucose 1 Hr 50 gm 121 mg/dL (70-140) 02/26/20 HIV 1&2 Antibody Non-Reactive (Nonreactive) 03/10/20 Rubella IgG Antibody Non-Reactive (Nonreactive) 03/10/20 Hgb 10.7 g/dL (12.0-15.0) L 03/10/20 Hct 32.9 % (37-47) L 03/10/20 RPR NONREACTIVE (NONREACTIVE) 03/10/20 Details: HIV: Urine Culture: Sequential Screen: NIPT Screen: ROS Const Reports system reviewed and no additional complaints, except as documented Card Reports system reviewed and no additional complaints, except as documented Resp Reports system reviewed and no additional complaints, except as documented GI Reports system reviewed and no additional complaints, except as documented, Reports nausea Reports system reviewed and no additional complaints, except as documented Musc Reports system reviewed and no additional complaints, except as documented all other systems reviewed and negative Exam Const General: cooperative, healthy appearing, comfortable HENMT Head: normal to inspection Nose: external nose normal Face and sinus: normal facial exam Neck Neck: normal visual inspection, full ROM, no lymphadenopathy Thyroid: thyroid normal Chest Chest palpation & inspection: normal inspection of the chest Resp Effort & Inspection: normal respiratory effort GI Inspection: normal to inspection Palpation: soft, other (gravid uterus) Other: breech and appropriate size for gestational age Other: Cervical Exam: Extrem General: pedal edema Results POC Urinalysis 2 Dip (Clinic) Office Urine Glucose Negative Last Edit by Nilda Patel on 04/23/20 09:0 5 Office Urine Protein Negative Last Edit by Nilda Patel on 04/23/20 09:0 5 Assessment & Plan Problems 1. Depression F32.9 celexa 2. Supervision of other normal Z34.80 PRR GORDON 05/21/20 PC: Mayank Spouse: Arpan 3. Z34.90 Declines genetic, carrier, and ntd screening; normal anatomy 4. Anemia affecting O99.019 iron added 5. Rubella non-immune status, antepartum O99.891; Z28.3 Recommend vaccination 6. 34 weeks gestation of Z3A.34 electronic covid test ordered 04/12/20 7. Breech presentation O32.1XX0 plan ECV start IV, give terbutaline and will attempt ECV. Orders Orders: POC Urinalysis 2 Dip (Clinic) Today Culture, Group B Streptococcus Today Z34.90 Coding Level of Care Code Off vis,est,level 3 Diagnoses Depression F32.9 Supervision of other normal Z34.80 Z34.90 Anemia affecting O99.019 Rubella non-immune status, antepartum O99.891; Z28.3 34 weeks gestation of Z3A.34 Breech presentation O32.1XX0
--- NOTE | 2020-04-29 11:01 | PCM.OPRPT ---
Problem List (1) 34 weeks gestation of Status: Acute Comment: electronic covid test ordered 04/12/20 (2) Anemia affecting Status: Acute Comment: iron added (3) Breech presentation Status: Acute Comment: plan ECV (4) H/O section Status: Acute Comment: Done for face presentation. Desires (5) Status: Acute Qualifiers: Weeks of gestation: 31 weeks Qualified Code(s): Z3A.31 - 31 weeks gestation of Comment: Declines genetic, carrier, and ntd screening; normal anatomy (6) Rubella non-immune status, antepartum Status: Acute Comment: Recommend vaccination (7) Supervision of other normal Status: Acute Comment: PRR GORDON 05/21/20 PC: Mayank Spouse: Arpan (8) Depression Status: Chronic Qualifiers: Comment: keegan Report of Operation Date of Procedure: 04/29/20 Description of Surgical Findings:: Preprocedure diagnosis: Breech presentation Post procedure diagnosis: Vertex presentation Procedure: External cephalic version Surgeon: Beronica Yepez EBL: None Complications: None Anesthesia: None Special medications: Terbutaline Seizure details: The fetus was found to be in breech presentation informed by ultrasound. Patient had an IV in place, normal amniotic fluid, no contraindications to a vaginal delivery, and reactive nonstress test prior to the procedure. Patient was placed in the dorsal supine position after the terbutaline was given. Ultrasound gel was applied to the patient's abdomen and using constant upward pressure to elevate the buttocks out of the pelvic inlet constant pressure was applied to the buttocks and to the area behind the back of the neck and head to encourage a forward roll of the fetus. Constant pressure was applied and slowly the infant was converted to a vertex presentation. Bedside ultrasound was used to confirm vertex presentation and reassuring heart rate. Patient was replaced on the NST and monitored to assure reassuring status. No complications. Multi Select Codes - Urinary/Genital Urinary/Genital CPT Codes: 16010 ECV
[2020-04-29] MEDS: Terbutaline 1 MG/ML Vial 0.25 MG SC (11:58)
== END 2020-04-29 14:28 | disposition home or self-care (01) ==
LOC: WPOUT 10:32 → WP 10:33
PROVIDERS: PCP Student in an Organized Health Care Education/Training Program; Referring Provider Obstetrics & Gynecology; Visit Provider Obstetrics & Gynecology
DX: O32.1XX0 Maternal care for breech presentation, not applicable or unspecified (principal); O99.343 Other mental disorders complicating pregnancy, third trimester; F32.9 Major depressive disorder, single episode, unspecified; O99.013 Anemia complicating pregnancy, third trimester; D64.9 Anemia, unspecified; O34.219 Maternal care for unspecified type scar from previous cesarean delivery; O99.891 Other specified diseases and conditions complicating pregnancy; Z28.3 Underimmunization status; Z3A.34 34 weeks gestation of pregnancy; Z79.899 Other long term (current) drug therapy
CPT/HCPCS: 96360; 96361 ×2; 59025; 59050; 59412; 99218; J7120; G0378

== ENCOUNTER 2020-05-17 09:45 | Inpatient (IN) | payer SELFPAY ==
[2019-12-05 12:13] VITALS: BMI 21.5
[2020-05-12 13:46] VITALS: BMI 21.5
[2020-05-17] VITALS (59 sets, daily range): BP systolic 89–137; BP diastolic 52–80; PULSE 69–124; TEMP 36.7–37.9; O2SAT 91–100; BMI 25.4
--- NOTE | 2020-05-17 07:59 | HP.PCM_ITS ---
- Problem List (1) 34 weeks gestation of Status: Acute Comment: electronic covid test ordered 04/12/20 (scheduled for 05/14/20 at 1350) (2) Anemia affecting Status: Acute Comment: iron added (3) H/O section Status: Acute Comment: Done for face presentation. Desires (4) Status: Acute Qualifiers: Weeks of gestation: 31 weeks Qualified Code(s): Z3A.31 - 31 weeks gestation of Comment: Declines genetic, carrier, and ntd screening; normal anatomy (5) Rubella non-immune status, antepartum Status: Acute Comment: Recommend vaccination (6) Supervision of other normal Status: Acute Comment: PRR GORDON 05/21/20 PC: Mayank Spouse: Arpan (7) Depression Status: Chronic Qualifiers: Comment: celexa (8) Unstable lie of fetus Status: Acute History and Physical Date of Admission: 05/17/20 Intake Vital Signs 05/14/20 Weight: 134 lb 2 oz 05/14/20 BP 110/70 Intake Visit Reasons: 39WK OB Rod Puller Required: No Accompanied by: self Allergies benzonatate Allergy (Verified 05/14/20 11:03) Vomiting oxycodone Allergy (Verified 05/14/20 11:03) Shortness of breath prazosin Allergy (Verified 05/14/20 11:03) Swelling ziprasidone HCl [From Geodon] Allergy (Verified 05/14/20 11:03) Other ziprasidone mesylate [From Geodon] Allergy (Verified 05/14/20 11:03) Other aripiprazole [From Abilify] Adverse Reaction (Verified 05/14/20 11:03) Other citalopram hydrobromide [From Celexa] Adverse Reaction (Verified 05/14/20 11:03) Other famotidine [From Pepcid] Adverse Reaction (Verified 05/14/20 11:03) Other iron Adverse Reaction (Verified 05/14/20 11:03) Other lithium Adverse Reaction (Verified 05/14/20 11:03) Other mirtazapine [From Remeron] Adverse Reaction (Verified 05/14/20 11:03) Itching olanzapine Adverse Reaction (Verified 05/14/20 11:03) Other MON LINYAH Adverse Reaction (Uncoded 05/14/20 11:03) Other Medications evening primrose oil 500 mg capsule 500 mg PO TID 04/23/20 [History Confirmed 05/14/20] Last Menstral Period: 08/15/19 Zika: Zika virus screening: Negative : No PFSH PFSH Medical History Anxiety and depression (Acute) Surgical History H/O section (Acute) Hiatal hernia (Acute) History of appendectomy (Acute) Hx laparoscopic cholecystectomy (Acute) Family History Aunt Diabetes Social History (Updated 05/14/20 @ 13:[address] Beronica Yepez MD) Smoking Status: Never smoker alcohol intake: never substance use type: does not use caffeine: Yes what type of physical activity do you participate in: none willis/sikh: mennonite seatbelt use: always do you feel safe at home: Yes additional social history: boyfriend Arpan single- [employer] [facility] [place] Pregancy History 2 Elective abortions Hx Para 1 Spontaneous abortions Hx # Term Pregnancies Ectopic pregnancies Hx # Pregnancies Multiple births # of living children 1 Past Pregnancies Del. Date Name GA/Weeks Outcome Route Bth Weight Infant Gen Labor Lgth Anesthesia Del [facility] Provider FOB 01/19/18 Mayank Ramos 41 live - full term C- section Male epidural [facility] Delivery Date: 01/19/18 Face presentation; Carey Guevara HPI 39WK OB : Details: HARPER LEMOS is a 29 year old G2, P1 presents at 39 weeks 3 days with unstable lie. External cephalic version was not necessary to be repeated due to spontaneous conversion to vertex. OB Visit GORDON Calculator Estimated Delivery Date Method Current WG Current Estimate 05/21/20 LMP (Certain) 39w 0d Other Estimates 05/17/20 Ultrasound #1 39w 4d Expected Delivery Route/Plan TOLAC patient counseled regarding risks/benefits of trial of labor versus repeat . ACOG/uptodate education given to patient. 74 % likelihood of success per calculator TOLAC consent form signed: 04/09/20 Labor Preference labor support person: [] labor intervention preferences: [] pain management options preferred: [] cut cord/dad catch: [] : [] PP control planned: [] discussed possible routes of delivery and associated risks: [] special requests: [] Specific Issue/Plans flu vaccine: declined tdap vaccine: declined rhogam: na LARC form signed: declined movement and labor precautions reviewed. Problem list reviewed and updated with the most current plan of care details and appropriate orders placed. Relevant counseling for the gestational age provided. 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 HC and BPD consistent with LMP. 01/07/20 20w 5d 119 lb 100/62 Negative Negative 150 SM- no vb lof good fm no regular ctx 01/28/20 23w 5d 122 lb 100/64 Negative Negative 145 24 SM - no vb lof good fm nor egular ctx 02/26/20 27w 6d 128 lb 102/64 Negative Negative 145 28 SM- no vb lof good fm nor egular ctx had cbc gct drawn, still needs the rest of NOB labs done- discussed to have drawn next visit 03/10/20 29w 5d 128 lb 102/62 Negative Negative 145 31 SM- no vb lof good fm no regular ctx see PL check aster acids for itching. 03/24/20 31w 5d 131 lb 110/76 Negative Negative 140 33 Cephalic 0 40 -3 GP - no LOF, VB, DFM. Was having more contractions over the weekend. Not painful over last 2 days. GP - no LOF, VB, DFM. Was having more contractions over the weekend. Not painful over last 2 days. denies dysuria. Denies increased discharge. GP - no LOF, VB, DFM. Was having more contractions over the weekend. Not painful over last 2 days. denies dysuria. Denies increased discharge. Cervix closed. Reassurance provided. GP - no LOF, VB, DFM. Was having more contractions over the weekend. Not painful over last 2 days. denies dysuria. Denies increased discharge. Cervix closed. Reassurance provided. PRR - rubella non-immune. 04/05/20 33w 3d 130 lb 6 oz 106/70 Negative Negative 150 MH NST only reactive. 04/09/20 34w 0d 131 lb 118/66 150 34 Cephalic SM- no vb lof good fm no regular ctx tolac larc forms signed 04/23/20 36w 0d 133 lb 117/75 Negative Negative 140 36 Breech 0.5 SM- no vb lof good fm regular ctx gbs done 05/07/20 38w 0d 114/70 Negative Negative 140 38 Cephalic 1 SM- no vb lof good fm no regular ctx 05/14/20 39w 0d 134 lb 2 oz 110/70 Negative Negative 140 39 Transverse 2 60 -4 SM- no vb lof dec fm no r egular ctx SM- no vb lof dec fm no regular ctx. Patient counseled regarding variable pre sentation and I recommend external cephalic version by immediate induction of labor. I discussed the risk of cord prolapse, or injury, or the need for repeat if the infant is not vertex. Patient declining version and induction at this time and wants to take a natural approach with chiropractor treatments but will consent to induction at 40 weeks if unsuccessful. ACOG First Trimester First Trimester: Desire for , Alcohol, Tobacco Cessation, Illicit/Recreational Drug/Substance Use, Intimate Partner Violence, Barriers to care, Unstable Housing, Communication Barriers, Environmental/Work Hazards, Anticipated Course of Care, Toxoplasmosis Precations, Use of Any medications, Sexual activity, Exercise, Dental Care, Sauna/Hot tub use, Seat Belt use, Childbirth classes/Hospital facilities, Travel, Indications for US and Screening for Aneuploidy; discussed Second Trimester Second Trimester: Signs and Symptoms of Labor, Selecting a care provider, Reproductive Life Planning, Care Planning, Tobacco Cessation, Depression/Anxiety and Intimate Partner Violence Diagnostics Diagnostics Diagnostics Blood Type A POSITIVE 03/10/20 Antibody Screen NEGATIVE 03/10/20 Glucose 1 Hr 50 gm 121 mg/dL (70-140) 02/26/20 HIV 1&2 Antibody Non-Reactive (Nonreactive) 03/10/20 Rubella IgG Antibody Non-Reactive (Nonreactive) 03/10/20 Hgb 10.7 g/dL (12.0-15.0) L 03/10/20 Hct 32.9 % (37-47) L 03/10/20 RPR NONREACTIVE (NONREACTIVE) 03/10/20 Details: HIV: Urine Culture: Sequential Screen: NIPT Screen: ROS Const Reports system reviewed and no additional complaints, except as docu Card Reports system reviewed and no additional complaints, except as docu Resp Reports system reviewed and no additional complaints, except as docu GI Reports system reviewed and no additional complaints, except as docu, Reports nausea Reports system reviewed and no additional complaints, except as docu Musc Reports system reviewed and no additional complaints, except as docu Exam Const General: cooperative, healthy appearing, comfortable, anxious HENMT Head: normal to inspection Nose: external nose normal Face and sinus: normal facial exam Neck Neck: normal visual inspection, full ROM, no lymphadenopathy Thyroid: thyroid normal Chest Chest palpation & inspection: normal inspection of the chest Resp Effort & Inspection: normal respiratory effort GI Inspection: normal to inspection Palpation: soft, other (gravid uterus) Other: Cervical Exam: Extrem General: pedal edema Office Procedures OB NST Non-Stress Test Indications for Monitoring: Yes decreased movement Heart Rate Baseline: 140 Heart Rate Variability: moderate Movement: Present Heart Rate Accelerations: Present Decelerations: Absent Contractions: Absent Impression: Yes Reactive Non-Stress Test Category 1 Results POC Urinalysis 2 Dip (Clinic) Office Urine Glucose Negative Last Edit by Roro Finch on 05/14/20 11:07 Office Urine Protein Negative Last Edit by Roro Finch on 05/14/20 11:07 Assessment & Plan Problems 1. Depression F32.9 celexa 2. Supervision of other normal Z34.80 PRR GORDON 05/21/20 PC: Mayank Spouse: Arpan 3. H/O section Z98.891 Done for face presentation. Desires 4. Z34.90 Declines genetic, carrier, and ntd screening; normal anatomy 5. Anemia affecting O99.019 iron added 6. Rubella non-immune status, antepartum O99.891; Z28.3 Recommend vaccination 7. 34 weeks gestation of Z3A.34 electronic covid test ordered 04/12/20 (scheduled for 05/14/20 at 1350) unstable lie 9. Decreased movement affecting management of in third trimester O36.8130 reviewed precautions and recommend delivery if persistent. nst done 05/14 Infant vertex upon presentation discussed recommendation for induction of labor secondary to unstable lie. Discussed risk of cord prolapse or inability to attempt vaginal delivery of she ruptures while baby is transverse. Patient agrees to induction of labor secondary to unstable lie.
[2020-05-17] MEDS: Lactated Ringers 1,000 ML 999 ML IV (10:20)
[2020-05-17 10:23] LABS: Absolute Lymphocyte Count 1.56 X10^3/uL (0.83-4.51); Absolute Neutrophil Count 4.6 X10^3/uL (2.0-7.7); Basophil# 0.02 X10^3/uL; Basophil% 0.3 % (0-1); Eosinophil# 0.04 X10^3/uL; Eosinophils% 0.6 % (0-5); Hematocrit 32.2 % (37-47); Hemoglobin 9.5 g/dL (12.0-15.0); Lymphocyte # 1.56 X10^3/ul (4.0); Lymphocyte % 21.8 % (19-41); Mean Corp Hgb Conc 29.5 g/dL (32-36); Mean Corpuscular Hgb 24.1 pg (27.0-32.0); Mean Corpuscular Volume 81.7 fL (81-99); Monocyte# 0.84 X10^3/uL; Monocyte% 11.7 % (0-10); NRBC Flagged by Analyzer 0 % (0-5); Neutrophil # 4.64 X10^3/uL (2.7-7.7); Neutrophil % 64.9 % (47-70); Platelet Count 203 K/mm3 (150-450); RBC Distribution Width CV 15.3 % (11.6-14.6); RBC Distribution Width SD 45.2 fl (35.1-43.9); Red Blood Count 3.94 M/mm3 (4.2-5.4); White Blood Count 7.2 K/mm3 (4.4-11.0)
[2020-05-17] MEDS: Lactated Ringers 1,000 ML 50 ML IV (11:21)
[2020-05-17] MEDS: Oxytocin 30 units/NS 500 ml 30 UNITS/500 ML IV.SOLN IV (13:36)
[2020-05-17] MEDS: Lactated Ringers 500 ML 999 ML IV ×2 (14:33→18:55)
[2020-05-17 14:55] LABS: Chlamydia Trachomatis by PCR Negative (Negative); Neisserai gonorrhoeae by PCR Negative (Negative); Probe Check PASS; Sample Adequacy Control PASS; Specimen Processing Control PASS
[2020-05-17] MEDS: fentaNYL-bupivacaine (epidural) 100 ML BAG EPIDURAL ×2 (18:58→23:51)
[2020-05-17] MEDS: Lactated Ringers 1,000 ML 200 ML IV (20:23)
[2020-05-18] VITALS (67 sets, daily range): BP systolic 87–146; BP diastolic 51–98; PULSE 73–137; RESP 16–18; TEMP 36.4–38.2; O2SAT 95–100
[2020-05-18] MEDS: Ondansetron 4 MG/2 ML Vial IV (00:05)
[2020-05-18] MEDS: Lactated Ringers 1,000 ML 200 ML IV ×4 (01:38→12:05)
[2020-05-18] MEDS: fentaNYL 100 MCG/2 ML Ampul IV (02:41)
[2020-05-18] MEDS: Lactated Ringers 500 ML 999 ML IV (03:09)
[2020-05-18] MEDS: fentaNYL-bupivacaine (epidural) 100 ML BAG EPIDURAL ×2 (04:11→08:44)
[2020-05-18] MEDS: 0.9% Saline Lock 10 ML Syringe IV (06:11)
[2020-05-18] MEDS: DiphenhydrAMINE 50 MG/ML Syringe IV (06:11)
[2020-05-18] MEDS: proCHLORPERazine 10 MG/2 ML Vial IV (07:38)
[2020-05-18] MEDS: Nalbuphine 10 MG/ML Ampul 5 MG IV (07:48)
[2020-05-18] MEDS: Cefazolin 2 GM in 0.9% Normal Saline 100 ML IV (12:35)
[2020-05-18] MEDS: Oxytocin 30 units/NS 500 ml 30 UNITS/500 ML IV.SOLN 167 UNITS IV (12:46)
[2020-05-18] MEDS: Ketorolac 30 MG/ML Syringe IV ×2 (13:10→19:01)
--- NOTE | 2020-05-18 13:26 | PCM.OPRPT ---
Problem List (1) 34 weeks gestation of Status: Acute Comment: electronic covid test ordered 04/12/20 (scheduled for 05/14/20 at 1350) (2) Anemia affecting Status: Acute Comment: iron added (3) H/O section Status: Acute Comment: Done for face presentation. Desires (4) Status: Acute Qualifiers: Weeks of gestation: 31 weeks Qualified Code(s): Z3A.31 - 31 weeks gestation of Comment: Declines genetic, carrier, and ntd screening; normal anatomy (5) Rubella non-immune status, antepartum Status: Acute Comment: Recommend vaccination (6) Supervision of other normal Status: Acute Comment: PRR GORDON 05/21/20 PC: Mayank Spouse: Arpan (7) Depression Status: Chronic Qualifiers: Comment: celexa (8) Unstable lie of fetus Status: Acute (9) Failed trial of labor following previous , delivered Status: Acute (10) Cephalopelvic disproportion Status: Acute (11) Failed vacuum extraction, delivered, current hospitalization Status: Acute Delivery Classification: Stat Final GORDON: 05/21/20 Gestational age: 39 Weeks and 4 Days Type of Anesthesia:: Epidural/Supplement Special Medications: none Implants Used: none Date of Procedure: 05/18/20 Pre-Operative Diagnosis: Unstable lie. Previous Post-Operative Diagnosis: same plus cephalopelvic disproportion failed vacuum Indications for : Arrrest of Descent Description of Procedure: 29-year-old G2, P1 presented at 39 and 3 for possible repeat external cephalic version. Patient had previously had an external cephalic version 2 weeks prior that was successful and then was noted to be transverse back up in the office days prior. It was recommended that the patient proceed with either or attempted external cephalic version and then induction due to unstable lie upon presentation the was vertex and therefore patient was induced with Pitocin. She did proceed to complete dilation and began pushing on and off for over an hour. Due to maternal exhaustion and inadequate pain control she had had 3 epidurals throughout the labor process. Predental block was placed vaginally bilaterally injecting 10 cc of lidocaine 2 cm medial and posterior to the sacrospinous ligaments bilaterally without complication vacuum is applied in the +2 station was noted to be ROP 3 pulls were made with 1 contraction with no pop offs and there was no descent therefore the decision was made to proceed with immediate due to suspected CPD. THe patient was placed in the dorsal supine position with leftward tilt. Patient was prepped and draped in the normal sterile fashion. Pfannenstiel skin incision was made with the scalpel and carried through to the underlying layer of fascia with the scalpel. Fascia was nicked in the midline and the incision extended laterally. The rectus bellies were dissected off superiorly and inferiorly with out complication both sharply and bluntly. The peritoneum was entered digitally. The incision was stretched and a low transverse uterine incision was made with the scalpel. The 's head was delivered atraumatically followed by the anterior and posterior shoulders without complication the rest of the infant delivered. The cord was clamped and cut and the was handed off to awaiting nurse. The placenta was delivered spontaneously immediately following and was noted to be intact and have a three-vessel cord. The uterus was exteriorized cleared of all clots and debris, and the incision was closed in a double layer closure using #1 Monocryl. The ovaries and fallopian tubes were noted to be within normal limits. The uterus was returned to the maternal abdomen and gutters were cleared of all clots and debris. The peritoneum was closed with 3-0 Monocryl in a running fashion. Gloves were changed prior to fascial closure. Fascia was closed with 0 PDS in a running fashion. Subcutaneous tissue was copiously irrigated and the skin was closed with 3-0 Monocryl in a subcuticular fashion. Mepilex dressing was applied without complication. Patient was taken to recovery in stable condition. It was discussed with the patient that based on the clinical information obtained during this encounter, combined with her history, at this time I would recommend cesareans for future deliveries if further pregnancies are desired. Due to maternal temp being elevated at 100.8 immediately prior to patient was given additional antibiotics and will be given an additional dose after delivery. Amniotic Membrane Rupture Type: Artificial Amniotic Fluid Description: Clear Placenta Disposition: [facility] Cord Entanglement: None Esitmated Blood Loss (ml): 600 Gender: Male Delayed cord clamping: No Antibiotic Given: Ancef 2 grams IV x1, Zithromax 500 mg/5 mL X1, - - Clindamycin Pt instructed on risks of surgery: Bleeding, Anesthesia Risks, Infection, Need for Future C-Sections, Injury to surrounding structure(s) including bowel and bladder Complications: None - Admit VTE Documentation VTE Present on Admission: No VTE Mechan Device Prophylaxis: SCD's Multi Select Codes - Urinary/Genital Urinary/Genital CPT Codes: 83627 Delivery global pkg, 71305 failed
[2020-05-18] MEDS: Methylergonovine 0.2 MG/ML Ampul IM (13:27)
[2020-05-18] MEDS: Acetaminophen 500 MG Tablet 1000 MG PO ×2 (16:07→22:05)
[2020-05-18] MEDS: Lactated Ringers 1,000 ML 100 ML IV (16:09)
[2020-05-18] MEDS: HYDROmorphone 1 MG/ML Syringe IV ×2 (16:37→20:21)
[2020-05-18] MEDS: Cefazolin 1 GM/50 ML BAG IV (21:15)
[2020-05-19] VITALS (8 sets, daily range): BP systolic 90–105; BP diastolic 42–65; PULSE 72–89; RESP 16; TEMP 36.6–37.1; O2SAT 97–100
[2020-05-19] MEDS: 0.9% Saline Lock 10 ML Syringe IV ×5 (00:44→18:36)
[2020-05-19] MEDS: Ketorolac 30 MG/ML Syringe IV ×3 (00:44→12:58)
[2020-05-19] MEDS: Enoxaparin 40 MG/0.4 ML Syringe SC ×2 (00:44→22:38)
[2020-05-19] MEDS: Acetaminophen 500 MG Tablet 1000 MG PO ×4 (04:00→22:38)
[2020-05-19] MEDS: Cefazolin 1 GM/50 ML BAG IV (05:00)
[2020-05-19] MEDS: HYDROmorphone 1 MG/ML Syringe IV (05:00)
[2020-05-19 06:11] LABS: Hematocrit 23.2 % (37-47); Mean Corp Hgb Conc 30.2 g/dL (32-36); Mean Corpuscular Hgb 24.6 pg (27.0-32.0); Mean Corpuscular Volume 81.4 fL (81-99); Mean Platelet Vol. 9.8 fl (6.2-12.0); POSITIVE DIFFERENTIAL YES; Platelet Count 181 K/mm3 (150-450); RBC Distribution Width CV 15.5 % (11.6-14.6); RBC Distribution Width SD 45.4 fl (35.1-43.9); Red Blood Count 2.85 M/mm3 (4.2-5.4); Scan Indicated on CBC? Y/N YES- FLAGS NOTED; White Blood Count 18.2 K/mm3 (4.4-11.0)
--- NOTE | 2020-05-19 07:59 | PN.OBGYN_ITS ---
Patient Problems: Active and Suspected Problems (Last Reviewed 05/14/20 @ 11:03 by Roro Finch) Unstable lie of fetus (Acute) Failed trial of labor following previous , delivered (Acute) Cephalopelvic disproportion (Acute) Failed vacuum extraction, delivered, current hospitalization (Acute) 34 weeks gestation of (Acute) electronic covid test ordered 04/12/20 (scheduled for 05/14/20 at 1350) Rubella non-immune status, antepartum (Acute) Recommend vaccination Anemia affecting (Acute) iron added (Acute) Declines genetic, carrier, and ntd screening; normal anatomy H/O section (Acute) Done for face presentation. Desires Supervision of other normal (Acute) PRR GORDON 05/21/20 PC: Mayank Spouse: Arpan Subjective: Patient doing well. Needs encouragement to ambulate. Noted anemia, asymptomatic. Tolerating PO. Voiding without difficulty. Breast feeding well. Denies chest pain, shortness of breath, calf pain/swelling, fevers, chills, lightheadedness. - Physical Exam Vitals/I&O's: Vital Signs Temp Pulse Resp BP Pulse Ox 98.2 F 76 16 98/54 L 96 05/19/20 03:53 05/19/20 03:53 05/19/20 03:53 05/19/20 03:53 05/18/20 22:09 Oxygen Delivery Method Room Air Weight: 135 lb Body Mass Index (BMI) 25.4 Intake and Output for Last 24 Hours 05/17/20 05/18/20 05/19/20 23:59 23:59 23:59 Intake Total 3533.53 / 3533.53 7453.33 / 7453.33 156 / 156 Output Total 2600 / 2600 5875 / 5875 Balance 933.53 / 933.53 1578.33 / 1578.33 156 / 156 General: Alert, Oriented x3 Abdomen: Bowel Sounds Present, - - FF at U. Dressing dry and intact. Appropriately tender. Distended. Laboratory Results 05/19/20 06:05: WBC Cancelled, Corrected WBC Cancelled, RBC Cancelled, Hgb Cancelled, Hct Cancelled, MCV Cancelled, MCH Cancelled, MCHC Cancelled, RDW Std Deviation Cancelled, RDW Coeff of Andrea Cancelled, Plt Count Cancelled, MPV Cancelled, Immature Gran % (Auto) Cancelled, Neut % (Auto) Cancelled, Lymph % (Auto) Cancelled, [place] % (Auto) Cancelled, Eos % (Auto) Cancelled, Baso % (Auto) Cancelled, Absolute Neuts (auto) Cancelled, Absolute Lymphs (auto) Cancelled, Total Counted Cancelled, Neutrophils % (Manual) Cancelled, Band Neutrophils % Cancelled, Lymphocytes % (Manual) Cancelled, Monocytes % (Manual) Cancelled, Eosinophils % (Manual) Cancelled, Basophils % (Manual) Cancelled, Metamyelocytes % Cancelled, Myelocytes % Cancelled, Promyelocytes % Cancelled, Blast Cells % Cancelled, Plasma Cell % (Manual) Cancelled, Other Cells % Cancelled, Nucleated RBC % Cancelled, Nucleated RBCs/100 WBC Cancelled, Differential Comment Can celled, Diff Path Review Cancelled, Hypersegmented Neuts Cancelled, Atypical Lymphocytes Cancelled, Reactive Lymphocytes Cancelled, Smudge Cells Cancelled, Toxic Granulation Cancelled, Toxic Vacuolation Cancelled, Dohle Bodies Cancelled, Maty Rods Cancelled, Platelet Estimate Cancelled, Plt Morphology Comment Cancelled, RBC Morphology Cancelled, Polychromasia Cancelled, Hypochromasia Cancelled, Poikilocytosis Cancelled, Basophilic Stippling Cancelled, Anisocytosis Cancelled, Microcytosis Cancelled, Macrocytosis Cancelled, Spherocytes Cancelled, Sickle Cells Cancelled, Target Cells Cancelled, Tear Drop Cells Cancelled, Ovalocytes Cancelled, Stomatocytes Cancelled, Contreras-Sunwest Bodies Cancelled, Brandy Cells Cancelled, Bite Cells Cancelled, Crenated Cell Cancelled, Acanthocytes (Spur) Cancelled, Rouleaux Cancelled, Schistocytes Cancelled 05/19/20 06:05: WBC 18.2 H, RBC 2.85 L, Hgb 7.0 L, Hct 23.2 L, MCV 81.4, MCH 24.6 L, MCHC 30.2 L, RDW Std Deviation 45.4 H, RDW Coeff of Andrea 15.5 H, Plt C ount 181, MPV 9.8, Diff Path Review May foll Current Medications Acetaminophen (Acetaminophen 500 Mg Tablet) 1,000 mg PO Q6H BRYON Last Admin: 05/19/20 04:00 Dose: 1,000 mg Documented by: Bisacodyl (Bisacodyl 10 Mg Suppository) 10 mg RC UD PRN PRN Reason: If no BM Enoxaparin Sodium (Enoxaparin 40 Mg/0.4 Ml Syringe) 40 mg SC DAILY@2200 BRYON Last Admin: 05/19/20 00:44 Dose: 40 mg Documented by: Hydrocortisone (Hydrocortisone 2.5% Crm) 1 applic TOPICAL TID PRN PRN; Protocol PRN Reason: Discomfort Hydromorphone HCl (Hydromorphone 1 Mg/Ml Syringe) 0.5 - 1.5 mg IV Q3H PRN PRN PRN Reason: Pain Score 4-10 Stop: 05/19/20 13:50 Last Admin: 05/19/20 05:00 Dose: 1 mg Documented by: Clindamycin Phosphate 900 mg/ (Dextrose) 106 mls @ 150 mls/hr IV Q8 [facility] Last Infusion: 05/19/20 07:03 Dose: Infused Documented by: Lactated Ringer's () 1,000 mls @ 100 mls/hr IV .Q10H [facility] Last Infusion: 05/19/20 07:02 Dose: Infused Documented by: Ketorolac Tromethamine (Ketorolac 30 Mg/Ml Syringe) 30 mg IV Q6H [facility] Stop: 05/19/20 13:01 Last Admin: 05/19/20 06:57 Dose: 30 mg Documented by: Methylergonovine Maleate (Methylergonovine 0.2 Mg/Ml Ampul) 0.2 mg IM X1 PRN PRN Reason: Uterine Atony Last Admin: 05/18/20 13:27 Dose: 0.2 mg Documented by: Naproxen (Naproxen 250 Mg Tablet) 500 mg PO Q8H [facility] Ondansetron HCl (Ondansetron 4 Mg/2 Ml Vial) 4 mg IV Q4H PRN PRN PRN Reason: Nausea Prochlorperazine Edisylate (Prochlorperazine 10 Mg/2 Ml Vial) 10 mg IV Q6H PRN PRN PRN Reason: NAUSEA Senna/Docusate Sodium (Senna/Docusate Sodium 1 Tablet) 0 tablet PO DAILY [facility] Simethicone (Simethicone 80 Mg Tablet) 80 mg PO PCHS PRN PRN Reason: Indigestion/stomach pain Sodium Chloride (0.9% Saline Lock 10 Ml Syringe) 5 - 15 ml IV UD PRN PRN Reason: SALINE FLUSH Last Admin: 05/19/20 06:58 Dose: 10 ml Documented by: Medical Necessity - Tobacco Use Smoking Status: Former smoker Assessment/Plan All Active Problems (Last Reviewed 05/14/20 @ 11:03 by Roro Finch) Unstable lie of fetus (Acute) Failed trial of labor following previous , delivered (Acute) Cephalopelvic disproportion (Acute) Failed vacuum extraction, delivered, current hospitalization (Acute) Decreased movement affecting management of in third trimester (Acute) 34 weeks gestation of (Acute) Rubella non-immune status, antepartum (Acute) Anemia affecting (Acute) (Acute) H/O section (Acute) Supervision of other normal (Acute) Abdominal pain (Resolved) Bleeding in early (Resolved) Breech presentation (Resolved) Constipation during (Resolved) False labor (Resolved) Generalized pruritus (Resolved) labor in third trimester (Resolved) Subchorionic hematoma in first trimester (Resolved) s/p LTCS PPD # 1 1. routine post care 2. breast feeding- support given 3. rh positive 4. rubella nonimmune 5. Encourage needs to ambulate, side lying to encourage flatus 6. Dr Rendon aware of anemia, will monitor for symptoms.
[2020-05-19] MEDS: Senna/Docusate Sodium 1 Tablet PO (10:31)
[2020-05-19 12:57] LABS: Pathologist Review Reviewed
[2020-05-19] MEDS: Naproxen 250 MG Tablet 500 MG PO (18:32)
[2020-05-19] MEDS: DiphenhydrAMINE 25 MG Capsule PO (22:38)
[2020-05-20] MEDS: Naproxen 250 MG Tablet 500 MG PO ×2 (02:50→10:24)
[2020-05-20 02:52] VITALS: BP 92/53; PULSE 71; RESP 16; TEMP 37
[2020-05-20] MEDS: HYDROcodone Bitartrate/Apap 5/325 Tablet PO ×2 (04:03→10:29)
[2020-05-20 06:16] LABS: Absolute Lymphocyte Count 1.67 X10^3/uL (0.83-4.51); Basophil# 0.02 X10^3/uL; Basophil% 0.2 % (0-1); Eosinophil# 0.05 X10^3/uL; Eosinophils% 0.4 % (0-5); Hematocrit 23.8 % (37-47); Hemoglobin 7.4 g/dL (12.0-15.0); Lymphocyte # 1.67 X10^3/ul (4.0); Mean Corp Hgb Conc 31.1 g/dL (32-36); Mean Corpuscular Hgb 25.4 pg (27.0-32.0); Mean Corpuscular Volume 81.8 fL (81-99); Mean Platelet Vol. 9.2 fl (6.2-12.0); Monocyte# 1.01 X10^3/uL; Monocyte% 7.9 % (0-10); NRBC Flagged by Analyzer 0 % (0-5); Neutrophil # 9.97 X10^3/uL (2.7-7.7); Neutrophil % 77.7 % (47-70); Platelet Count 186 K/mm3 (150-450); RBC Distribution Width CV 16.2 % (11.6-14.6); RBC Distribution Width SD 48.2 fl (35.1-43.9); Red Blood Count 2.91 M/mm3 (4.2-5.4); White Blood Count 12.8 K/mm3 (4.4-11.0)
[2020-05-20] MEDS: 0.9% Saline Lock 10 ML Syringe IV (06:20)
--- NOTE | 2020-05-20 07:56 | PCM.PN.OB ---
Patient Problems: Active and Suspected Problems (Last Reviewed 05/14/20 @ 11:03 by Roro Finch) Unstable lie of fetus (Acute) Failed trial of labor following previous , delivered (Acute) Cephalopelvic disproportion (Acute) Failed vacuum extraction, delivered, current hospitalization (Acute) 34 weeks gestation of (Acute) electronic covid test ordered 04/12/20 (scheduled for 05/14/20 at 1350) Rubella non-immune status, antepartum (Acute) Recommend vaccination Anemia affecting (Acute) iron added (Acute) Declines genetic, carrier, and ntd screening; normal anatomy H/O section (Acute) Done for face presentation. Desires Supervision of other normal (Acute) PRR GORDON 05/21/20 PC: Mayank Spouse: Arpan Subjective: Patient doing well without complaints. Tolerating PO. Ambulating and voiding without difficulty. breast feeding well. Denies chest pain, shortness of breath, calf pain/swelling, fevers, chills, lightheadedness. - Physical Exam Vitals/I&O's: Vital Signs Temp Pulse Resp BP Pulse Ox 98.6 F 71 16 92/53 L 98 05/20/20 02:52 05/20/20 02:52 05/20/20 02:52 05/20/20 02:52 05/19/20 21:53 Oxygen Delivery Method Room Air Weight: 135 lb Body Mass Index (BMI) 25.4 Intake and Output for Last 24 Hours 05/18/20 05/19/20 05/20/20 23:59 23:59 23:59 Intake Total 7453.33 / 7453.33 156 / 156 Output Total 5875 / 5875 Balance 1578.33 / 1578.33 156 / 156 General: Alert, Oriented x3 Laboratory Results 05/17/20 10:00: Crossmatch See Detail 05/19/20 06:05: Diff Path Review Reviewed 05/20/20 06:10: WBC 12.8 H, RBC 2.91 L, Hgb 7.4 L, Hct 23.8 L, MCV 81.8, MCH 25.4 L, MCHC 31.1 L, RDW Std Deviation 48.2 H, RDW Coeff of Andrea 16.2 H, Plt Count 186, MPV 9.2, Immature Gran % (Auto) 0.800, Neut % (Auto) 77.7 H, Lymph % (Auto) 13.0 L, [place] % (Auto) 7.9, Eos % (Auto) 0.4, Baso % (Auto) 0.2, Absolute Neuts (auto) 10.0 H, Absolute Lymphs (auto) 1.67, Nucleated RBC % 0 Current Medications Acetaminophen (Acetaminophen 500 Mg Tablet) 1,000 mg PO Q6H [facility] Last Admin: 05/20/20 04:03 Dose: Not Given Documented by: Hydrocodone Bitart/Acetaminophen (Hydrocodone Bitartrate/Apap 5/325 Tablet) 1 tablet PO Q6H PRN PRN PRN Reason: Pain Score 6-10 Last Admin: 05/20/20 04:03 Dose: 1 tablet Documented by: Bisacodyl (Bisacodyl 10 Mg Suppository) 10 mg RC UD PRN PRN Reason: If no BM Diphenhydramine HCl (Diphenhydramine 25 Mg Capsule) 25 mg PO Q6H PRN PRN PRN Reason: restless leg Last Admin: 05/19/20 22:38 Dose: 25 mg Documented by: Enoxaparin Sodium (Enoxaparin 40 Mg/0.4 Ml Syringe) 40 mg SC DAILY@2200 [facility] Last Admin: 05/19/20 22:38 Dose: 40 mg Documented by: Hydrocortisone (Hydrocortisone 2.5% Crm) 1 applic TOPICAL TID PRN PRN; Protocol PRN Reason: Discomfort Methylergonovine Maleate (Methylergonovine 0.2 Mg/Ml Ampul) 0.2 mg IM X1 PRN PRN Reason: Uterine Atony Last Admin: 05/18/20 13:27 Dose: 0.2 mg Documented by: Naproxen (Naproxen 250 Mg Tablet) 500 mg PO Q8H [facility] Last Admin: 05/20/20 02:50 Dose: 500 mg Documented by: Ondansetron HCl (Ondansetron 4 Mg/2 Ml Vial) 4 mg IV Q4H PRN PRN PRN Reason: Nausea Prochlorperazine Edisylate (Prochlorperazine 10 Mg/2 Ml Vial) 10 mg IV Q6H PRN PRN PRN Reason: NAUSEA Senna/Docusate Sodium (Senna/Docusate Sodium 1 Tablet) 0 tablet PO DAILY [facility] Last Admin: 05/19/20 10:31 Dose: 1 tablet Documented by: Simethicone (Simethicone 80 Mg Tablet) 80 mg PO PCHS PRN PRN Reason: Indigestion/stomach pain Last Admin: 05/19/20 19:06 Dose: 80 mg Documented by: Sodium Chloride (0.9% Saline Lock 10 Ml Syringe) 5 - 15 ml IV UD PRN PRN Reason: SALINE FLUSH Last Admin: 05/20/20 06:20 Dose: 10 ml Documented by: Medical Necessity - Tobacco Use Smoking Status: Former smoker Assessment/Plan All Active Problems (Last Reviewed 05/14/20 @ 11:03 by Roro Finch) Unstable lie of fetus (Acute) Failed trial of labor following previous , delivered (Acute) Cephalopelvic disproportion (Acute) Failed vacuum extraction, delivered, current hospitalization (Acute) Decreased movement affecting management of in third trimester (Acute) 34 weeks gestation of (Acute) Rubella non-immune status, antepartum (Acute) Anemia affecting (Acute) (Acute) H/O section (Acute) Supervision of other normal (Acute) Abdominal pain (Resolved) Bleeding in early (Resolved) Breech presentation (Resolved) Constipation during (Resolved) False labor (Resolved) Generalized pruritus (Resolved) labor in third trimester (Resolved) Subchorionic hematoma in first trimester (Resolved) s/p LTCS PPD # 2 anemia acute on chronic due to blood loss- will take iron/chlorophyll at home 1. routine post care 2. breast feeding- support given 3. rh positive 4. rubella immune
--- NOTE | 2020-05-20 07:57 | DCINST_ITS ---
Discharge Diet: No Restrictions Discharge Activity: May Not Drive - for 2 weeks, May not drive while taking narcotic pain medications., May Shower, May Take a Tub Bath - in 7 days May resume sexual activity in: 4-6 weeks Lifting Restrictions: 20 pounds Additional Activity Instructions:: Nothing in the vagina for 4-6 weeks. You may return to work/school in 6 weeks. Call your doctor if your incision/area has: Continuous Slow Oozing, Sudden Increased Bleeding, Increased Pain/ Swelling, Increased Redness, Foul Smelling Discharge Call your doctor if you observe: Fever of 101 or Higher, Using more than one pad per hour - for 2 hours Suture Line Care: Avoid Pulling/Pushing, Avoid Pinching/Bending Cleanse incision/area with: Keep Dressing Clean & Dry Additional Instructions: If you experience any of the following, contact your healthcare provider. * Bleeding that soaks a pad every hour for 2 hours * Fever 100.4 or higher * Unrelieved incision or abdominal pain * Swelling, redness, discharge or bleeding from your incision or episiotomy site * Your incision begins to separate * Problems urinating (including inability to urinate or burning while urinating). * Visual changes * Severe headache * Flu-like symptoms * Pain or redness in one of both of your breasts * Pain, warmth, tenderness or swelling in your legs, especially the calf area * Frequent nausea and vomiting * Symptoms of depression or anxiety If you experience any of the following, call 911 or go to the nearest Emergency Room. * Chest pain * Problems breathing * Seizure activity * Partial or complete paralysis of a body part, slurred speech, weakness or drooping of the face, or a sudden inability to walk or hold your balance Allergies/Adverse Reactions: Allergies benzonatate Allergy (Verified 05/14/20 11:03) Vomiting oxycodone Allergy (Verified 05/14/20 11:03) Shortness of breath prazosin Allergy (Verified 05/14/20 11:03) Swelling ziprasidone HCl [From Geodon] Allergy (Verified 05/14/20 11:03) Other chest pressure ziprasidone mesylate [From Geodon] Allergy (Verified 05/14/20 11:03) Other chest pressure aripiprazole [From Abilify] Adverse Reaction (Verified 05/14/20 11:03) Other states she cant remember rx citalopram hydrobromide [From Celexa] Adverse Reaction (Verified 05/14/20 11:03) Other famotidine [From Pepcid] Adverse Reaction (Verified 05/14/20 11:03) Other iron Adverse Reaction (Verified 05/14/20 11:03) Other Constipation from oral iron supplements lithium Adverse Reaction (Verified 05/14/20 11:03) Other mirtazapine [From Remeron] Adverse Reaction (Verified 05/14/20 11:03) Itching olanzapine Adverse Reaction (Verified 05/14/20 11:03) Other MON LINYAH Adverse Reaction (Uncoded 05/14/20 11:03) Other Medications to take at Discharge evening primrose oil 500 mg capsule 500 mg PO TID 04/23/20 Hydrocodone Bitart/Apap 5-325 [Colony 5MG-325MG] 1 tablet PO Q4H PRN PRN 3 Days #10 tablet 05/20/20 Naproxen [Naprosyn] 250 - 500 mg PO Q8H PRN PRN #30 tab 05/20/20 The following prescriptions were given: Naproxen [Naprosyn] 250 - 500 mg PO Q8H PRN PRN #30 tab PRN Reason: MILD PAIN Transmission Status: Pending to [facility] Hydrocodone Bitart/Apap 5-325 [Colony 5MG-325MG] 1 tablet PO Q4H PRN PRN 3 Days #10 tablet PRN Reason: Pain Transmission Status: Sent to [facility] Follow-Up: Call to make an appointment with your doctor for an incision check in 1-2 weeks. You will also need a 6 week post- follow up appointment. Test results from this visit will be discussed in further detail at your follow- up appointment, if applicable. Please Follow Up With: Beronica Yepez MD - Call to make an appointment for an incision check in 1-2 [phone] When: You will need a post- check in 6 weeks. Primary Care Physician: Quan Ramires DO [Primary Care Provider] -
[2020-05-20 08:07] VITALS: BP 115/59; PULSE 63; RESP 16; TEMP 36.6; O2SAT 98
[2020-05-20] MEDS: Senna/Docusate Sodium 1 Tablet PO (10:24)
--- NOTE | 2020-05-20 13:00 | CASEMGMT ---
Social Work Brief Assessment Labor and Delivery Unit Patient Address: [address] [place] [address] Phone number: [phone] Date of Referral/Notification: 05.20.2020 Time of Referral: [phone] Referred By: verbal notification by nursing staff Date of Intervention: 05.20.2020 Time of Intervention: 1300 Reason for Referral: maternal history of depression and anxiety. Informant: Medical record and mother of baby (MOB) Katie Matos. History: MOB is a 29 year old female, delivering a 39 week gestational age baby boy who is to be named Christiano Matos. Father of baby (FOB) is Arpan Matos and have been for 3 years. No reports of abuse, and MOB denied to nursing staff upon admission. Christiano is the second child for the parents together. First child is a boy, Mayank Matos (born 01.19.2018). MOB and FOB are ex-[employer] and belong to the [employer] muslim at this time. Both speak [place] Island[place]. MOB with 8th grade education. MOB has history of depression, anxiety, and Borderline personality disorder. History of treatment with medications and also outpatient treatment for mental health issues with Dr. Gil, [facility], and has had referrals to [facility] in the past. MOB denies any concerns with substance use issues. FOB works as a automatic tire tester and MOB is not currently employed. Assessment: Met with MOB in room, and FOB on phone carrying on a conversation in [place] during social work visit. MOB agreeable to have social work visit during FOB's phone call. This song writer familiar with MOB from prior admission to [facility]. MOB shook head in acknowledgement of remembering this song writer from prior visit. 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 MOB reports to feel her mental health is doing well, no medications at this time, and that if symptoms arise or become distressing to have a good support system and support group. MOB is aware of mental health resource, and accepted resource information for [facility], where the family resides. MOB reports to feel a connection to the baby, denies any concerns with home going. MOB reports FOB is helpful and supportive as well. MOB reports to have all needed supplies to care for the baby, including safe sleep space (bassinet). MOB declines referrals to [facility] or other supportive services. Has history with WIC and states that does not want to to WIC again with Christiano. No voiced concerns by nursing staff regarding mother/child interactions or bonding. Educated to depression, risk factors, and importance of seeking out help and support should symptoms arise or become distressing. Plan: MOB and baby to discharge home, with support from . No further needs requested or indicated. -PRUDENCE Crandall, UI PROGRAMMER *Information documented in this assessment generated with [employer] System*
[2020-05-20 13:50] VITALS: BP 98/56; PULSE 89; RESP 16; TEMP 36.7; O2SAT 97
--- NOTE | 2020-05-24 12:08 | PCM.DC.SUM ---
Discharge Date and Diagnosis - Problem List Patient Problems: Active and Suspected Problems (Last Reviewed 05/14/20 @ 11:03 by Roro Finch) Unstable lie of fetus (Acute) Failed trial of labor following previous , delivered (Acute) Cephalopelvic disproportion (Acute) Failed vacuum extraction, delivered, current hospitalization (Acute) 34 weeks gestation of (Acute) electronic covid test ordered 04/12/20 (scheduled for 05/14/20 at 1350) Rubella non-immune status, antepartum (Acute) Recommend vaccination Anemia affecting (Acute) iron added (Acute) Declines genetic, carrier, and ntd screening; normal anatomy H/O section (Acute) Done for face presentation. Desires Supervision of other normal (Acute) PRR GORDON 05/21/20 PC: Mayank Spouse: Arpan Date of Admission: 05/17/20 - Primary Discharge Diagnosis Acute Problems: Active Problems (Last Reviewed 05/14/20 @ 11:03 by Roro Finch) Unstable lie of fetus (Acute) Failed trial of labor following previous , delivered (Acute) Cephalopelvic disproportion (Acute) Failed vacuum extraction, delivered, current hospitalization (Acute) 34 weeks gestation of (Acute) electronic covid test ordered 04/12/20 (scheduled for 05/14/20 at 1350) Rubella non-immune status, antepartum (Acute) Recommend vaccination Anemia affecting (Acute) iron added (Acute) Declines genetic, carrier, and ntd screening; normal anatomy H/O section (Acute) Done for face presentation. Desires Supervision of other normal (Acute) PRR GORDON 05/21/20 PC: Mayank Spouse: Arpan - Secondary Discharge Diagnosis Chronic Problems: Chronic Problems (Last Reviewed 05/14/20 @ 11:03 by Roro Finch) Depression (Chronic) [facility] Course and Treatment Consultations 05/17/20 12:04 Consult: Anesthesia Routine Comment: Reason For Exam: Labor Operations: cholecystecomy, - - LTCS Summary of Care Provided: The patient is a 29 year old female Patient underwent section with routine recovery, return of normal bowel and bladder function. Ambulating, voiding and tolerating PO. Stable for discharge home POD #3. Patient Problems: Active and Suspected Problems (Last Reviewed 05/14/20 @ 11:03 by Roro Finch) Unstable lie of fetus (Acute) Failed trial of labor following previous , delivered (Acute) Cephalopelvic disproportion (Acute) Failed vacuum extraction, delivered, current hospitalization (Acute) 34 weeks gestation of (Acute) electronic covid test ordered 04/12/20 (scheduled for 05/14/20 at 1350) Rubella non-immune status, antepartum (Acute) Recommend vaccination Anemia affecting (Acute) iron added (Acute) Declines genetic, carrier, and ntd screening; normal anatomy H/O section (Acute) Done for face presentation. Desires Supervision of other normal (Acute) PRR GORDON 05/21/20 PC: Mayank Spouse: Arpan - Physical Exam Vitals/I&O's: Vital Signs Temp Pulse Resp BP Pulse Ox 98.1 F 89 16 98/56 L 97 05/20/20 13:50 05/20/20 13:50 05/20/20 13:50 05/20/20 13:50 05/20/20 13:50 Oxygen Delivery Method Room Air Weight: 135 lb Body Mass Index (BMI) 25.4 Discharge Diet: No Restrictions Discharge Activity: May Not Drive - for 2 weeks, May not drive while taking narcotic pain medications., May Shower, May Take a Tub Bath - in 7 days May resume sexual activity in: 4-6 weeks Additional Activity Instructions:: Nothing in the vagina for 4-6 weeks. You may return to work/school in 6 weeks. Call your doctor if your incision/area has: Continuous Slow Oozing, Sudden Increased Bleeding, Increased Pain/ Swelling, Increased Redness, Foul Smelling Discharge Call your doctor if you observe: Fever of 101 or Higher, Using more than one pad per hour - for 2 hours Suture Line Care: Avoid Pulling/Pushing, Avoid Pinching/Bending Cleanse incision/area with: Keep Dressing Clean & Dry Home Medications: Medications to take at Discharge evening primrose oil 500 mg capsule 500 mg PO TID 04/23/20 Naproxen [Naprosyn] 250 - 500 mg PO Q8H PRN PRN #30 tab 05/20/20 Following Prescriptions Were Given to Patient: Naproxen [Naprosyn] 250 - 500 mg PO Q8H PRN PRN #30 tab PRN Reason: MILD PAIN Transmission Status: Received by [facility] Primary Care Physician: Quan Ramires DO [Primary Care Provider] - Please follow up with your Primary Care Physician in: 1-2 weeks Please Follow Up With: Beronica Yepez MD When: You will need a post- check in 6 weeks. Medical Necessity - Tobacco Use Smoking Status: Former smoker Meaningful Use Info Meaningful Use Diagnoses (Choose all that apply): None applicable
== END 2020-05-20 14:15 | disposition home or self-care (01) | DRG 788 ==
PROVIDERS: Obstetrics & Gynecology; Admitting Provider Obstetrics & Gynecology; PCP Student in an Organized Health Care Education/Training Program; Referring Provider Obstetrics & Gynecology; Visit Provider Obstetrics & Gynecology
PROC: 3E033VJ Introduction of Other Hormone into Peripheral Vein, Percutaneous Approach (ICD-10-PCS; CPT 59514; principal; 2020-05-17 11:45)
DX: O34.219 Maternal care for unspecified type scar from previous cesarean delivery (principal); Z3A.39 39 weeks gestation of pregnancy; Z37.0 Single live birth; O32.0XX0 Maternal care for unstable lie, not applicable or unspecified; O99.02 Anemia complicating childbirth; O66.5 Attempted application of vacuum extractor and forceps; O75.81 Maternal exhaustion complicating labor and delivery; O66.40 Failed trial of labor, unspecified; Z87.891 Personal history of nicotine dependence
CPT/HCPCS: 59025; 59050; 85025; 85027; 86850; 86900; 86901; 86920; 87491; 87591; 99218; J7120; P9016; A4216; G0378; J2405

== ENCOUNTER → 2020-07-01 15:09 | Outpatient (CLI) | payer SELFPAY ==
[2020-07-01 14:26] VITALS: BMI 20.7
[2020-07-01 16:03] LABS: T4 Free Direct 0.94 ng/dL (0.76-1.46); Thyroid Stim Hormone (TSH) 1.77 uIU/mL (0.358-3.74)
[2020-07-06 09:44] LABS: HPV APTIMA, High Risk Negative (Negative)
== END ==
PROVIDERS: PCP Student in an Organized Health Care Education/Training Program; Referring Provider Obstetrics & Gynecology; Visit Provider Obstetrics & Gynecology
DX: E01.0 Iodine-deficiency related diffuse (endemic) goiter (principal); Z12.4 Encounter for screening for malignant neoplasm of cervix
CPT/HCPCS: 36415; 84439; 84443; 87624; 88175; G0145